=== PATIENT | female | born 1955 | race Caucasian/White ===

== ENCOUNTER 2024-01-22 11:39 | Inpatient (IN) | payer OTHER, SELFPAY ==
--- NOTE | ~2024-01-22 | XR_ITS ---
EXAMINATION: XR CHEST CLINICAL INFORMATION: Chest pain COMPARISON: None available. TECHNIQUE: 2 views of the chest were obtained. FINDINGS: No significant abnormality is noted involving the heart, lungs, mediastinum, bony thorax or soft tissues. There is some minimal wedging of a lower thoracic vertebral body. XR/XR chest 2V IMPRESSION: No acute intrathoracic disease.
--- NOTE | 2024-01-22 11:41 | ECG_ITS ---
Test Reason : CHEST PAIN Blood Pressure : / mmHG Vent. Rate : 089 BPM Atrial Rate : 089 BPM P-R Int : 150 ms QRS Dur : 122 ms QT Int : 432 ms P-R-T Axes : 033 018 023 degrees QTc Int : 525 ms Normal sinus rhythm Minimal voltage criteria for LVH, may be normal variant ( [place] product ) Left bundle branch block Abnormal ECG No previous ECGs available Referred By: Generic ED Physician Electronically Signed By:MARNIE LOPEZ MD
--- NOTE | 2024-01-22 11:52 | ED.GENADULT ---
HPI - General Adult General Chief complaint: Chest Pain Stated complaint: Chest pain, SOB Time Seen by Provider: 01/22/24 19:15 Related Data Home Medications Medication Instructions Recorded Confirmed albuterol sulfate 90 mcg/actuation 2 puff inhalation Q6H PRN 01/22/24 01/22/24 aerosol inhaler Shortness Of Breath Or Wheezing ammonium lactate 12 % lotion 1 appl topical BID 01/22/24 01/22/24 atorvastatin 10 mg tablet 10 mg DAILY 01/22/24 01/22/24 cyclosporine 0.05 % eye drops in a 1 drp ophthalmic (eye) BID 01/22/24 01/22/24 dropperette (Restasis) melatonin 10 mg tablet 10 mg PO BEDTIME 01/22/24 01/22/24 metformin 500 mg tablet 750 mg PO DAILY 01/22/24 01/22/24 multivitamin with folic acid 400 1 tab PO DAILY 01/22/24 01/22/24 mcg tablet (Daily-Romie (with folic acid)) naproxen 500 mg tablet 500 mg PO BID PRN pain 01/22/24 01/22/24 omeprazole 40 mg capsule,delayed 40 mg PO DAILY 01/22/24 01/22/24 release valsartan 40 mg tablet 40 mg PO BID 01/22/24 01/22/24 Allergies Allergy/AdvReac Type Severity Reaction Status Date / Time No Known Allergies* Allergy Uncoded 07/20/20 14:27 [facility] Social History Social History Advance Directives: No Advance Directives Information Provided: No Physical Exam ED Vital Signs: Vital Signs - 24 hr 01/22/24 11:53 Temperature 97.7 F Pulse Rate 83 Respiratory Rate 20 Blood Pressure 140/70 H Pulse Oximetry 100 Oxygen Delivery Method Room Air BMI result Body Mass Index 27.3 Course Course Course Narrative: This is a rapid medical exam: Additional HPI, ROS, PE not included below will be deferred to primary provider. Patient is a 68-year-old Italian speaking female presenting with intermittent episodes of chest pain with shortness of breath, lasting approx 3 minutes per episode, around 10x/day. Has been having these episodes for the past 2 years but states episodes are increasing in frequency. Plan: EKG, cxr, labs Additional chart created for same visit Medications Administered Discontinued Medications Generic Name Dose Route Start Last Admin Trade Name Freq PRN Reason Stop Dose Admin Aspirin 324 mg 01/22/24 19:37 01/22/24 19:49 Aspirin 81 Mg Tab.Chew PO 01/22/24 19:38 324 mg ONCE ONE Administration Medical Decision Making Lab Data 01/22/24 12:33 01/22/24 12:33 Labs: Lab Results 01/22/24 01/22/24 Range/Units 12:33 19:59 WBC 6.6 (4.8-10.8) X10*3/uL RBC 4.11 L (4.20-5.50) X10*6/uL Hgb 11.8 L (12.0-16.0) g/dl Hct 36.2 L (37.0-47.0) % MCV 88.1 (80.0-98.0) fL MCH 28.7 (27.0-33.0) pg MCHC 32.6 (31.0-35.0) g/dl RDW 13.1 (11.0-16.0) % Plt Count 409 H (160-400) X10*3/uL MPV 10.7 (9.4-12.3) fL Immature Gran % (Auto) 0.5 H (0.0-0.4) % Neut % (Auto) 40.0 L (45-73) % Lymph % (Auto) 49.5 H (20-40) % Pope % (Auto) 7.9 (2-11) % Eos % (Auto) 1.8 (0-4) % Baso % (Auto) 0.3 (0-2) % Lymph # (Auto) 3.3 (1.2-4.9) X10*3/uL Pope # (Auto) 0.5 (0.1-1.2) X10*3/uL Eos # (Auto) 0.1 (0.0-0.4) X10*3/uL Baso # (Auto) 0.0 (0.0-0.2) X10*3/uL Abs Immat Gran (auto) 0.03 (0.00-0.03) X10*3/uL Absolute Neuts (auto) 2.6 (2.0-8.3) x10*3/uL Absolute Nucleated RBC 0.000 (0.0-0.012) X10*3/uL Nucleated RBC % (auto) 0.0 (0.0-0.2) /100WBC PT 11.1 (11.1-13.3) SEC INR 0.9 (0.9-1.1) Sodium 142 (135-145) mmol/L Potassium 4.4 (3.3-5.1) mmol/L Chloride 109 H (96-108) mmol/L Carbon Dioxide 25 (22-29) mmol/L Anion Gap 12 (12-20) BUN 14 (9-16) mg/dL Creatinine 0.76 (0.5-1.4) mg/dL Estim Creat Clear Calc 58.9 Estimated GFR > 60 Random Glucose 100 (60-115) mg/dL Calcium 9.6 (8.4-10.2) mg/dL Total Bilirubin 0.3 (0.0-1.0) mg/dL AST 20 (5-31) U/L ALT 17 (0-31) U/L Alkaline Phosphatase 78 (39-117) U/L Troponin I High Sens < 2.7 2.8 (<3.5-17.0) ng/L Total Protein 7.2 (6.5-8.0) g/dL Albumin 4.0 (3.5-5.0) g/dL Discharge Plan Discharge Clinical Impression: Chest pain, Angina at rest Patient Disposition: Admitted As Inpatient
[2024-01-22 11:53] VITALS: BP 140/70; PULSE 83; RESP 20; TEMP 36.5; O2SAT 100; BMI 27.3
[2024-01-22 12:37] LABS: MANUAL DIFF FLAG NO
[2024-01-22 12:39] LABS: Basophils Percent Auto 0.3 % (0-2); Eosinophils Absolute Auto 0.1 X10*3/uL (0.0-0.4); Eosinophils Percent Auto 1.8 % (0-4); Hematocrit 36.2 % (37.0-47.0); Hemoglobin 11.8 g/dl (12.0-16.0); Imm Gran Abs Auto 0.03 X10*3/uL (0.00-0.03); Imm Gran Pct Auto 0.5 % (0.0-0.4); Lymphocytes Absolute Auto 3.3 X10*3/uL (1.2-4.9); Lymphocytes Percent Auto 49.5 % (20-40); Mean Corpuscular HGB Conc 32.6 g/dl (31.0-35.0); Mean Corpuscular Hemoglobin 28.7 pg (27.0-33.0); Mean Corpuscular Volume 88.1 fL (80.0-98.0); Mean Platelet Volume 10.7 fL (9.4-12.3); Monocytes Absolute Auto 0.5 X10*3/uL (0.1-1.2); Monocytes Percent Auto 7.9 % (2-11); Neutrophils Absolute Auto 2.6 x10*3/uL (2.0-8.3); Platelet Count 409 X10*3/uL (160-400); Red Blood Count 4.11 X10*6/uL (4.20-5.50); Red Cell Distribution Width 13.1 % (11.0-16.0); White Blood Count 6.6 X10*3/uL (4.8-10.8)
[2024-01-22 12:49] LABS: INTERNATIONAL NORM RATIO 0.9 (0.9-1.1); Prothrombin Time 11.1 SEC (11.1-13.3)
[2024-01-22 12:53] LABS: Alanine Aminotransferase 17 U/L (0-31); Alkaline Phosphatase 78 U/L (39-117); Anion Gap 12 (12-20); Aspartate Amino Transferase 20 U/L (5-31); Bilirubin Total 0.3 mg/dL (0.0-1.0); Blood Urea Nitrogen 14 mg/dL (9-16); Calcium 9.6 mg/dL (8.4-10.2); Carbon Dioxide 25 mmol/L (22-29); Chloride 109 mmol/L (96-108); Creatinine Clr Calc Pharmacy 58.9; Estimated Glomerular Filt Rate > 60; Glucose Random 100 mg/dL (60-115); Potassium 4.4 mmol/L (3.3-5.1); Sodium 142 mmol/L (135-145); Total Protein 7.2 g/dL (6.5-8.0)
[2024-01-22 13:16] LABS: Troponin-I High Sensitivity < 2.7 ng/L (<3.5-17.0)
[2024-01-22 19:30] VITALS: PULSE 87
[2024-01-22] MEDS: Aspirin 81 MG TAB.CHEW 324 MG PO (19:49)
--- NOTE | 2024-01-22 19:57 | ED.CHESTPAIN ---
HPI - Chest Pain General Chief Complaint: Chest Pain Stated Complaint: Chest pain, SOB Time Seen by Provider: 01/22/24 19:15 History of Present Illness HPI narrative: Patient is a 68-year-old female presents today with having chest pain on and off for the last 2 years but is getting much worse in the last month patient claims the pain is lasting longer up to 5 minutes each time there has no specific trigger there has no focal weakness patient has a history of prediabetes history of hypertension hypercholesterolemia she is 60 years old never had any risk stratification done. She denies any focal weakness denies any radiation of the pain to the back. Pain goes to the neck. It is associated some shortness of breath. No diaphoresis. Patient claims the pain goes away by itself. Was seen by patient's primary physician 3 days prior had an EKG done at the office a was positive for a left bundle branch block. Patient came in today because the frequency of pain has increased the duration of the pain has increased and she is getting more short of breath. Related Data Allergies Allergy/AdvReac Type Severity Reaction Status Date / Time No Known Allergies* Allergy Uncoded 07/20/20 14:27 Review of Systems Review of Systems: Positive chest pain positive shortness of breath Yes all other systems are reviewed and are negative [facility] Past Medical History Attestation statement: The following information was validated with the patient. Social History Social History Advance Directives: No Advance Directives Information Provided: No Physical Exam Vital Signs: Vital Signs: Last Vital Signs Temp 97.7 F 01/22/24 11:53 Pulse 83 01/22/24 11:53 Resp 20 01/22/24 11:53 BP 140/70 H 01/22/24 11:53 Pulse Ox 100 01/22/24 11:53 O2 Del Method Room Air 01/22/24 11:53 BMI result Body Mass Index 27.3 Appearance: Alert. Oriented X3. No acute distress. Eyes: Pupils equal, round and reactive to light. ENT: Pharynx normal. Neck: Normal inspection. Neck supple. No lymph nodes noted. No crepitus CVS: Normal heart rate and rhythm. Pulses normal. Normal S1 and S2 Respiratory: No respiratory distress. Breath sounds normal. No Wheezing. No rales Abdomen: Soft and nontender. No rigidity. No distention. good BS x4 Skin: Skin warm and dry. Normal skin color. Normal skin turgor. Extremities: No lower extremity edema. Neurovascular intact to all extremities. No Lacerations. No Rash Neuro: Oriented X 3. No motor deficit. No sensory deficit. Moving all extermities. No slurred speech Medications Administered Discontinued Medications Generic Name Dose Route Start Last Admin Trade Name Harmeet PRN Reason Stop Dose Admin Aspirin 324 mg 01/22/24 19:37 01/22/24 19:49 Aspirin 81 Mg Tab.Chew PO 01/22/24 19:38 324 mg ONCE ONE Administration Medical Decision Making Medical Decision Making [facility] Narrative: Patient is 68 years old presents today with having chest pain. The chest pain is mid chest it has been on an off. Patient's initial set of troponin was negative. She feels shortness of breath associated with this chest pain. She feels the pain goes to her neck without any specific triggers. Patient can get the pain at rest. An EKG done today by my interpretation shows a sinus rhythm with a left bundle branch block heart rate was approximately 80. Patient's EKG did not meet Sgarbossa criteria. Patient is currently pain-free. She does have a history of prediabetes, hypertension, high cholesterol. In the setting of 68-year-old with multiple risk factor no risk stratification chest pain with shortness of breath that comes and go at rest. Outpatient not a good candidate for outpatient workup as her heart score is greater than 3. Her troponin was negative. Case discussed with hospitalist team and with cardiology. Okay with admission. Currently in stable condition. Differential Diagnosis Differential Diagnoses: The differential diagnosis associated with the presentation includes Angina, ACS Admission/Observation Consideration of admission/observation: Escalation of care including admission/observation considered Consult Healthcare Provider Management of the patient was discussed with: Hospitalist and [employer] Power Plant Operator (Web Press Roll Tender) Lab Data [facility] Lab Attestation statement: I reviewed the patient's lab results. 01/22/24 12:33 01/22/24 12:33 Labs: Lab Results 01/22/24 Range/Units 12:33 WBC 6.6 (4.8-10.8) X10*3/uL RBC 4.11 L (4.20-5.50) X10*6/uL Hgb 11.8 L (12.0-16.0) g/dl Hct 36.2 L (37.0-47.0) % MCV 88.1 (80.0-98.0) fL MCH 28.7 (27.0-33.0) pg MCHC 32.6 (31.0-35.0) g/dl RDW 13.1 (11.0-16.0) % Plt Count 409 H (160-400) X10*3/uL MPV 10.7 (9.4-12.3) fL Immature Gran % (Auto) 0.5 H (0.0-0.4) % Neut % (Auto) 40.0 L (45-73) % Lymph % (Auto) 49.5 H (20-40) % [place] % (Auto) 7.9 (2-11) % Eos % (Auto) 1.8 (0-4) % Baso % (Auto) 0.3 (0-2) % Lymph # (Auto) 3.3 (1.2-4.9) X10*3/uL [place] # (Auto) 0.5 (0.1-1.2) X10*3/uL Eos # (Auto) 0.1 (0.0-0.4) X10*3/uL Baso # (Auto) 0.0 (0.0-0.2) X10*3/uL Abs Immat Gran (auto) 0.03 (0.00-0.03) X10*3/uL Absolute Neuts (auto) 2.6 (2.0-8.3) x10*3/uL Absolute Nucleated RBC 0.000 (0.0-0.012) X10*3/uL Nucleated RBC % (auto) 0.0 (0.0-0.2) /100WBC PT 11.1 (11.1-13.3) SEC INR 0.9 (0.9-1.1) Sodium 142 (135-145) mmol/L Potassium 4.4 (3.3-5.1) mmol/L Chloride 109 H (96-108) mmol/L Carbon Dioxide 25 (22-29) mmol/L Anion Gap 12 (12-20) BUN 14 (9-16) mg/dL Creatinine 0.76 (0.5-1.4) mg/dL Estim Creat Clear Calc 58.9 Estimated GFR > 60 Random Glucose 100 (60-115) mg/dL Calcium 9.6 (8.4-10.2) mg/dL Total Bilirubin 0.3 (0.0-1.0) mg/dL AST 20 (5-31) U/L ALT 17 (0-31) U/L Alkaline Phosphatase 78 (39-117) U/L Troponin I High Sens < 2.7 (<3.5-17.0) ng/L Total Protein 7.2 (6.5-8.0) g/dL Albumin 4.0 (3.5-5.0) g/dL Independent Interpretation I performed an independent interpretation of an: EKG (Left bundle branch block heart rate is 80 negative Sgarbossa criteria) and Plain X-Ray (Chest x-ray negative for pneumonia) Radiology Impression Discussion of test interpretation with radiology: I have reviewed the radiologist's reading. Chronic Conditions Hypercholesterolemia, hypertension, prediabetic Discharge Plan Discharge Clinical Impression: Chest pain, Angina at rest Patient Disposition: Admitted As Inpatient
--- NOTE | 2024-01-22 20:24 | PHA.MEDREC ---
Pharmacy Consult ? Medication Reconciliation Pharmacy has completed the medication reconciliation. Patient reported there was a recent increase of metfromin from 500 to 750 mg. Bianka Lara, OlegD
[2024-01-22 20:25] LABS: Troponin-I High Sensitivity 2.8 ng/L (<3.5-17.0)
--- NOTE | 2024-01-22 20:53 | P.HPHOSP_ITS ---
History of Present Illness Date of Service: 01/22/24 Attending physician on admission: Lexie Kang Chief Complaint: chest pain Stephanie Palafox is a 68 years old woman with past medical history significant for impaired glucose tolerance on metformin, GERD/PUD, hyperlipidemia and essential hypertension presents to the emergency department complaining mid chest pain. Patient stated that she has been having chest pain episodes over the last 2 years. Initially the chest pain happened with exertion mode over the last several months i occurs with minimal exertion oxygen with shortness on breath and palpitations. She stated last night was very severe, intensity 10/10. It radiated to her neck. These events last several minutes. Denied nausea, vomiting, sweating or dizziness. She denies history of CHF or CAD. Patient commented that her 40 years old daughter we will undergo cardiac catheterization soon. She denied tobacco smoking, alcohol abuse or illicit drug use. On January 17 of this year she underwent ECG that showed LBBB. Previous ECGs showed no left bundle block. She takes Tylenol as needed for knee pain. In the ED, she was found to have stable vital signs. Blood workup showed no leukocytosis or thrombocytopenia. Troponin is negative x2. There are no significant electrolyte imbalances. Renal and liver function are normal. ECG showed LBBB. ED tx: Aspirin 324 mg p.o., Lovenox 60 mg subQ Review of Systems 2 Review of Systems: All 12 systems were reviewed and normal except as noted in HPI. [facility] Medical History (Updated 01/22/24 @ 21:16 by Lexie Kang MD) GERD (gastroesophageal reflux disease) Impaired glucose tolerance Hyperlipidemia Essential hypertension Surgical History (Updated 01/22/24 @ 21:16 by Lexie Kang MD) H/O inguinal hernia repair H/O bladder repair surgery History of hand surgery H/O: hysterectomy Social History Advance Directives: No Advance Directives Information Provided: No Meds Allergies Allergy/AdvReac Type Severity Reaction Status Date / Time No Known Allergies* Allergy Uncoded 07/20/20 14:27 Active Medications: Current Medications Acetaminophen (Acetaminophen 325 Mg Tablet) 650 mg PO Q6H PRN PRN Reason: Pain, Mild (Pain Scale 1-3) Aspirin (Aspirin Enteric Coated 81 Mg Tablet.Dr) 81 mg PO DAILY CHANO Enoxaparin Sodium (Enoxaparin Sodium 60 Mg/0.6 Ml Syringe) 60 mg 1 mg/kg (60 mg) SUBCUT BID [facility] Sodium Chloride (0.9 % Sodium Chloride Flush 3 Ml Syringe) 3 ml IVFLUSH QSHIFT [facility] Home Medications Medication Instructions Recorded Confirmed Last Taken Type albuterol sulfate 90 mcg/actuation 2 puff inhalation Q6H PRN 01/22/24 01/22/24 Unknown History aerosol inhaler Shortness Of Breath Or Wheezing ammonium lactate 12 % lotion 1 appl topical BID 01/22/24 01/22/24 01/22/24 History atorvastatin 10 mg tablet 10 mg DAILY 01/22/24 01/22/24 01/22/24 History cyclosporine 0.05 % eye drops in a 1 drp ophthalmic (eye) BID 01/22/24 01/22/24 01/22/24 History dropperette (Restasis) melatonin 10 mg tablet 10 mg PO BEDTIME 01/22/24 01/22/24 01/21/24 History metformin 500 mg tablet 750 mg PO DAILY 01/22/24 01/22/24 01/22/24 History multivitamin with folic acid 400 1 tab PO DAILY 01/22/24 01/22/24 01/22/24 History mcg tablet (Daily-Romie (with folic acid)) naproxen 500 mg tablet 500 mg PO BID PRN pain 01/22/24 01/22/24 Unknown History omeprazole 40 mg capsule,delayed 40 mg PO DAILY 01/22/24 01/22/24 01/22/24 History release valsartan 40 mg tablet 40 mg PO BID 01/22/24 01/22/24 01/22/24 History Physical Exam 2 Vital Signs and Narrative: Vital Signs: Last Vital Signs Temp 97.7 F 01/22/24 11:53 Pulse 83 01/22/24 11:53 Resp 20 01/22/24 11:53 BP 140/70 H 01/22/24 11:53 Pulse Ox 100 01/22/24 11:53 O2 Del Method Room Air 01/22/24 11:53 BMI result Body Mass Index 27.3 Constitutional - Awake and Alert, No apparent distress. Eyes - PERRLA, EOMI Cardiovascular - S1S2, RRR, No edema Respiratory - Normal lung expansion, Normal respiratory effort, No respiratory distress, CTA bilaterally Gastrointestinal - NT / ND; +BS; No rebound or guarding - No CVA tenderness Extremities - no calf tenderness bilaterally, no swelling Musculoskeletal - Normal inspection, normal ROM Skin - Warm/Dry Neurological - Alert & oriented x3, CN II-XII in tact, 5/5 strength BUE and BLE Psychological - Appropriate affect Results Labs 01/22/24 12:33 01/22/24 12:33 Labs: Laboratory Results - last 24 hr 01/22/24 01/22/24 12:33 19:59 MCV 88.1 MCH 28.7 MCHC 32.6 RDW 13.1 Plt Count 409 H MPV 10.7 Immature Gran % (Auto) 0.5 H Neut % (Auto) 40.0 L Lymph % (Auto) 49.5 H [place] % (Auto) 7.9 Eos % (Auto) 1.8 Baso % (Auto) 0.3 Lymph # (Auto) 3.3 [place] # (Auto) 0.5 Eos # (Auto) 0.1 Baso # (Auto) 0.0 Abs Immat Gran (auto) 0.03 Absolute Neuts (auto) 2.6 Absolute Nucleated RBC 0.000 Nucleated RBC % (auto) 0.0 PT 11.1 INR 0.9 Anion Gap 12 Estim Creat Clear Calc 58.9 Estimated GFR > 60 Random Glucose 100 Calcium 9.6 Total Bilirubin 0.3 AST 20 ALT 17 Alkaline Phosphatase 78 Troponin I High Sens < 2.7 2.8 Total Protein 7.2 Albumin 4.0 Imaging Radiologist's Impressions: Impressions Chest X-Ray 01/22/24 12:06 IMPRESSION: No acute intrathoracic disease. Assessment and Plan (1) Unstable angina: Status: Acute (2) Essential hypertension: Status: Acute (3) Hyperlipidemia: Qualifiers: Hyperlipidemia type: unspecified Qualified Code(s): E78.5 - Hyperlipidemia, unspecified Status: Acute (4) Impaired glucose tolerance: Status: Acute (5) GERD (gastroesophageal reflux disease): Qualifiers: Esophagitis presence: esophagitis presence not specified Qualified Code(s): K21.9 - Gastro-esophageal reflux disease without esophagitis Status: Acute Plan Stephanie Palafox is a 68 years old woman admitted with: * Unstable angina/ACS. Admit to hospitalist service. Telemetry. Continue treatment with Lovenox 60 mg subQ every 12 hours. Continue treatment with aspirin 81 mg p.o. daily. Add beta blockers continue statin. Nitroglycerin SL q5 min x3 prn chest pain. TTE. Cardiology consult -notified by ED. * Hyperlipidemia. Continue statin. * Essential hypertension. Continue losartan. * Impaired glucose tolerance. Hold metformin. Blood glucose monitoring before meals and bedtime. Insulin sliding scale. Check Hgb A1c. * GERD/PUD. Continue PPI. DVT prophylaxis: Lovenox GI prophylaxis: PPI Code status: Full Patient will need hospitalization for at least 2 midnights for unstable angina treatment with Lovenox, close vital signs monitoring and evaluation by subspecialty. Quality Stroke Does the patient have a stroke diagnosis?: No VTE Prior VTE?: No VTE Risk Level:: Medical - moderate - high VTE Device Contraindication: Treatment Not Indicated VTE Drug Contraindication: N/A - Med Ordered
[2024-01-22 21:23] LABS: Hematocrit 35.8 % (37.0-47.0); Hemoglobin 11.9 g/dl (12.0-16.0); Mean Corpuscular HGB Conc 33.2 g/dl (31.0-35.0); Mean Corpuscular Hemoglobin 28.7 pg (27.0-33.0); Mean Corpuscular Volume 86.5 fL (80.0-98.0); Mean Platelet Volume 10.7 fL (9.4-12.3); Platelet Count 414 X10*3/uL (160-400); Red Blood Count 4.14 X10*6/uL (4.20-5.50); Red Cell Distribution Width 13.2 % (11.0-16.0); White Blood Count 7.6 X10*3/uL (4.8-10.8)
[2024-01-22 21:25] LABS: INTERNATIONAL NORM RATIO 0.9 (0.9-1.1); Prothrombin Time 10.6 SEC (11.1-13.3)
[2024-01-22 21:28] LABS: Partial Thromboplastin Time 28.8 SEC (26.0-36.8)
[2024-01-22 21:34] VITALS: BP 155/96; PULSE 88; RESP 20; TEMP 36.6; O2SAT 98
[2024-01-22 21:49] VITALS: BP 155/96; PULSE 90
[2024-01-22] MEDS: Nitroglycerin 2 % Oint 1 GM Packet 0.5 INCH TRANSDERMA (21:49)
[2024-01-22 22:00] VITALS: BP 142/74; PULSE 79; RESP 18; TEMP 36.6; O2SAT 98
[2024-01-22 22:01] LABS: Glucose, Whole Blood 135 mg/dL (60-115)
[2024-01-22] MEDS: Metoprolol Tartrate 12.5 MG HALFTAB PO (22:28)
[2024-01-22] MEDS: 0.9 % Sodium Chloride Flush 3 ML SYRINGE IVFLUSH (22:45)
[2024-01-22] MEDS: Enoxaparin Sodium 60 MG/0.6 ML SYRINGE SUBCUT (22:46)
[2024-01-22] MEDS: Melatonin 3 MG TABLET 9 MG PO (22:47)
[2024-01-22] MEDS: Valsartan 40 MG TABLET PO (22:50)
[2024-01-23 05:19] VITALS: BP 134/74; PULSE 67; RESP 18; TEMP 36.6; O2SAT 100
[2024-01-23 05:20] LABS: Basophils Percent Auto 0.1 % (0-2); Eosinophils Absolute Auto 0.2 X10*3/uL (0.0-0.4); Hematocrit 32.8 % (37.0-47.0); Hemoglobin 10.9 g/dl (12.0-16.0); Imm Gran Abs Auto 0.03 X10*3/uL (0.00-0.03); Imm Gran Pct Auto 0.4 % (0.0-0.4); Lymphocytes Absolute Auto 4.3 X10*3/uL (1.2-4.9); Lymphocytes Percent Auto 58.8 % (20-40); MANUAL DIFF FLAG NO; Mean Corpuscular HGB Conc 33.2 g/dl (31.0-35.0); Mean Corpuscular Hemoglobin 28.7 pg (27.0-33.0); Mean Corpuscular Volume 86.3 fL (80.0-98.0); Mean Platelet Volume 10.6 fL (9.4-12.3); Monocytes Absolute Auto 0.5 X10*3/uL (0.1-1.2); Monocytes Percent Auto 6.1 % (2-11); Neutrophils Absolute Auto 2.4 x10*3/uL (2.0-8.3); Neutrophils Percent Auto 32.6 % (45-73); Platelet Count 369 X10*3/uL (160-400); Red Cell Distribution Width 13.2 % (11.0-16.0); White Blood Count 7.4 X10*3/uL (4.8-10.8)
[2024-01-23 05:37] LABS: Anion Gap 13 (12-20); Blood Urea Nitrogen 15 mg/dL (9-16); Carbon Dioxide 25 mmol/L (22-29); Chloride 108 mmol/L (96-108); Cholesterol 230 mg/dL (<200); Creatinine Clr Calc Pharmacy 63.9; Estimated Glomerular Filt Rate > 60; Glucose Random 106 mg/dL (60-115); HDL Cholesterol 44 mg/dL (>40); LDL Cholesterol Calculated 142 mg/dL (<100); Potassium 4.1 mmol/L (3.3-5.1); Sodium 142 mmol/L (135-145); Triglycerides 221 mg/dL (<150)
[2024-01-23 05:44] LABS: Troponin-I High Sensitivity 3.4 ng/L (<3.5-17.0)
[2024-01-23] MEDS: Omeprazole 40 MG CAPSULE.DR PO (06:19)
--- NOTE | 2024-01-23 07:00 | CA_ITS ---
Transthoracic Echocardiogram Patient (Last, First, Middle): Stephanie Palafox, Gender: Female Date of : 1955 Age: 68 Procedure Date: 01/23/2024 Procedure Type: Transthoracic Echocardiogram [place] [facility] [place]: 152.4 cm Weight: 63.5 kg BSA: 1.60 m2 Heart Rate: 73 bpm BP: 134 / 74 mmHg Informatica: SB Referring MD: Lexie Kang MD Social Worker Health Services: Jeffery Foster MD Symptoms: Unstable angina, LBBB Study Quality: Fair but adequate apical window ECG Rhythm: Sinus Conclusions: - 1. Moderately reduced LV ejection fraction 35-40% with possible basal inferior wall motion abnormality with impaired relaxation filling pattern 2. Cardiac valvular Doppler is within normal limits 3. Normal RV systolic pressure 4. No gross pericardial effusion Findings Left Ventricle Normal left ventricular cavity size. There is normal left ventricular wall thickness. The left ventricular systolic function is moderately decreased. The visually estimated ejection fraction is between 35-40%. There is moderate global hypokinesis. There is paradoxical septal motion consistent with a left bundle branch block. Spectral Doppler is indicative of an impaired relaxation filling pattern. E/E prime ratio is between 8 and 15 consistent with indeterminate filling pressures. There is mild septal asymmetric hypertrophy. Wall Motion Rest Echo Findings The basal inferior segment is hypokinetic. All other scored wall segments showed normal motion. Right Ventricle Normal right ventricular cavity size and systolic function. Atria Both atria are normal in size. There is no evidence of interatrial shunt. Aortic Valve Normal aortic valve structure and function. There is no aortic valve stenosis. There is no aortic valve regurgitation. Mitral Valve Normal mitral valve structure and function. There is trace mitral valve regurgitation. There is no mitral valve stenosis. Pulmonic Valve The pulmonic valve is likely normal. Tricuspid Valve Normal tricuspid valve structure. There is trace tricuspid valve regurgitation. The right ventricular systolic pressure is normal. The right ventricular systolic pressure is 29 mmHg. Normal right atrial pressure. There is no evidence of pulmonary hypertension. Great Vessels All visible segments of the aorta are normal in size. The pulmonary artery was not well visualized. There is no dilatation of the ascending aorta measuring 3.00 cm. Venous The inferior vena cava is normal in size and collapses greater than 50% with inspiration. Pericardium/Pleural There is no evidence of pericardial effusion. Prior Study Comparison No prior study available for comparison. Measurements 2D Linear Measurements IVSd: 1.33 0.6-0.9/0.6-1.0 cm LVIDd: 3.56 3.9-5.3/4.2-5.9 cm LVIDd Index: 2.23 2.4-3.2/2.2-3.1 cm/m2 LVIDs: 2.68 2.0-3.6 cm LVPWd: 0.81 0.7-1.1 cm LA Diam: 3.30 2.7-3.8/3.0-4.0 cm LAIDs Index: 2.06 1.5-2.3 cm/m2 LV Mass: 145.17 67-162/88-224 g LV Mass Index: 90.73 43-95/49-115 g/m2 LVOT Diam: 2.00 3.0+(-)1.3 cm 2D Systolic Function EF 4C: 35.30 >55% EF 2C: 47.60 >55% EF BiP: 40.80 >55% Mitral Valve MV Pk E: 0.52 MV PK A: 0.96 MV Decel Time: 111.00 E/A: 0.50 E'Lateral: 6.74 E'Medial: 2.72 E/E' Med: 19.20 E/E' Lat: 7.80 PHT: 33.00 MVA PHT: 6.67 Decel [place]: 4.71 Aortic Valve AoV Pk Kirit: 1.26 AoV Pk Grad: 6.00 OCTAVIO: 2.05 LVOT LVOT Pk Kirit: 0.82 LVOT Mn Kirit: 0.51 LVOT VTI: 0.15 LVOT Pk Grad: 3.00 LVOT Mn Grad: 1.00 LVOT Diam: 2.00 LVOT Area: 3.14 Diastolic Function MV Pk E: 0.52 MV Pk A: 0.96 E/A: 0.50 E'Medial: 2.72 E/E' Med: 19.20 E' Laterial: 6.74 E/E' Lat: 7.80 Right Ventricle TAPSE (mm): 7.00 TVS' Kirit: 5.66 Tricuspid Valve TR Pk Kirit: 2.54 TR Pk Grad: 26.00 RA Press: 3.00 RVSP: 29.00 Great Vessels Aorta Sinus of Valsalva: 2.80 2.0-3.5 cm Ao Asc: 3.00 2.1-3.4 cm Pulmonary Valve PV Pk Kirit: 1.00 Peak PV Grad: 4.00 Updated in Other Vendor System with Status of Final Jeffery Foster MD electronically signed on 01/23/2024 11:47:01 AM with status of Final
[2024-01-23 07:22] LABS: Estimated Average Glucose 120 mg/dL; Hemoglobin A1c % 5.8 % (<6.0)
[2024-01-23 08:21] VITALS: BP 146/81; PULSE 77; RESP 20; TEMP 36.3; O2SAT 99
--- NOTE | 2024-01-23 10:12 | P.CONCA_ITS ---
History of Present Illness History of Present Illness Date of Service: 01/23/24 Requesting physician: Barb Goodman Consult reason: chest pain Chief complaint: unstable angina Narrative: I was consulted to see Mrs. Palafox in cardiology consultation today for chest discomfort and new EKG abnormality and palpitations. History was obtained with help of veterinary assistant at bedside. Patient's daughter was present room. Patient for many years has been having symptoms of retrosternal chest pressure associated with rapid heartbeat which she feels in her neck and associated shortness of breath/choking sensation. Patient says the symptoms have been present for many years and has been evaluated as outpatient from gastroenterological perspective. The symptoms happen randomly. Did not happen only with exertion or under stressful situation or after eating. Symptoms happen randomly and can happen even at nighttime. She had seen a primary care physician recently and was noted to have abnormal EKG ever advised to come to emergency room as it will get time to see a visual stylist. Patient came to the emergency room yesterday. Her EKG does show left bundle-branch block. This apparently is new. Her serial troponins are normal and flat. She was admitted overnight. She has not had any arrhythmias overnight. No symptoms overnight. She has prior history of hypertension, hyperlipidemia, acid reflux disease. She is advised to be admitted by the emergency room physician due to her progressive symptoms and new left bundle-branch block. Review of Systems 2 Constitutional: Constitutional: Reports no additional constitutional complaints Eyes: Eyes: Reports no additional eye complaints ENT: Reports system reviewed and no additional complaints, except as documented Cardiovascular: Cardiovascular: Reports chest pain at rest, Denies leg edema, Denies lightheadedness, Denies Loss of Consciousness, Reports palpitations and Reports dyspnea Respiratory: Respiratory: Reports no additional respiratory complaints and Reports dyspnea Gastrointestinal: Gastrointestinal: Reports no additional gastrointestinal complaints Genitourinary: Genitourinary: Reports no additional female genitourinary complaints Musculoskeletal: Musculoskeletal: Reports no additional musculoskeletal complaints Integumentary/Breasts: Skin/Breast: Reports system reviewed and no additional complaints, except as docu Neurologic: Reports system reviewed and no additional complaints, except as documented Psychiatric: Psychiatric: Reports no additional psychiatric complaints Endocrine: Endocrine: Reports palpitations PMFSH Past Medical History Medical History GERD (gastroesophageal reflux disease) Impaired glucose tolerance Hyperlipidemia Essential hypertension Surgical History Surgical History H/O inguinal hernia repair H/O bladder repair surgery History of hand surgery H/O: hysterectomy Social History Social History Household Members: Children Housing: House Do you presently have visiting nurse or other home services: No Patient Tobacco Use Status: Never used Tobacco Meds Allergies Allergy/AdvReac Type Severity Reaction Status Date / Time No Known Allergies* Allergy Uncoded 07/20/20 14:27 Active Medications: Current Medications Acetaminophen (Acetaminophen 325 Mg Tablet) 650 mg PO Q6H PRN PRN Reason: Pain, Mild (Pain Scale 1-3) Aspirin (Aspirin Enteric Coated 81 Mg Tablet.Dr) 81 mg PO DAILY [facility] Atorvastatin Calcium (Atorvastatin Calcium 10 Mg Tablet) 10 mg PO DAILY [facility] Dextrose (Dextrose 50 % 25 Gm/50 Ml Syringe) 25 gm IVPUSH Q15M PRN; Protocol PRN Reason: per Hypoglycemia Standing Ord. Enoxaparin Sodium (Enoxaparin Sodium 60 Mg/0.6 Ml Syringe) 60 mg 1 mg/kg (60 mg) SUBCUT BID [facility] Glucose (Glucose Gel 15 Gm Gel..Gram.) 15 gm PO Q15M PRN; Protocol PRN Reason: per Hypoglycemia Standing Ord. Insulin Human Lispro (Insulin Lispro 100 Unit/Ml 3 Ml Vial) 0 unit SUBCUT QIDACHS [facility]; Protocol Last Admin: 01/23/24 07:03 Dose: Not Given Melatonin (Melatonin 3 Mg Tablet) 9 mg PO BEDTIME [facility] Last Admin: 01/22/24 22:47 Dose: 9 mg Metoprolol Tartrate (Metoprolol Tartrate 12.5 Mg Halftab) 12.5 mg PO BID [facility]; Protocol Last Admin: 01/22/24 22:28 Dose: 12.5 mg Nitroglycerin (Nitroglycerin 0.4 Mg Tab.Subl) 0.4 mg SUBLINGUAL Q5MX3 PRN PRN Reason: Chest Pain Nitroglycerin (Nitroglycerin 2 % Oint 1 Gm Packet) 0.5 inch TRANSDERMA RQ6H WHILE AWAKE [facility] Last Admin: 01/22/24 21:49 Dose: 0.5 inch Non-Formulary Medication (Cyclosporine [Restasis]) 1 drop EYE-BOTH BID [facility] Omeprazole (Omeprazole 40 Mg Capsule.Dr) 40 mg PO DAILY@0630 [facility] Last Admin: 01/23/24 06:19 Dose: 40 mg Sodium Chloride (0.9 % Sodium Chloride Flush 3 Ml Syringe) 3 ml IVFLUSH QSHIFT [facility] Last Admin: 01/23/24 07:06 Dose: Not Given Valsartan (Valsartan 40 Mg Tablet) 40 mg PO BID [facility]; Protocol Last Admin: 01/22/24 22:50 Dose: 40 mg Home Medications Medication Instructions Recorded Confirmed Last Taken Type albuterol sulfate 90 mcg/actuation 2 puff inhalation Q6H PRN 01/22/24 01/22/24 Unknown History aerosol inhaler Shortness Of Breath Or Wheezing ammonium lactate 12 % lotion 1 appl topical BID 01/22/24 01/22/24 01/22/24 History atorvastatin 10 mg tablet 10 mg DAILY 01/22/24 01/22/24 01/22/24 History cyclosporine 0.05 % eye drops in a 1 drp ophthalmic (eye) BID 01/22/24 01/22/24 01/22/24 History dropperette (Restasis) melatonin 10 mg tablet 10 mg PO BEDTIME 01/22/24 01/22/24 01/21/24 History metformin 500 mg tablet 750 mg PO DAILY 01/22/24 01/22/24 01/22/24 History multivitamin with folic acid 400 1 tab PO DAILY 01/22/24 01/22/24 01/22/24 History mcg tablet (Daily-Romie (with folic acid)) naproxen 500 mg tablet 500 mg PO BID PRN pain 01/22/24 01/22/24 Unknown History omeprazole 40 mg capsule,delayed 40 mg PO DAILY 01/22/24 01/22/24 01/22/24 History release valsartan 40 mg tablet 40 mg PO BID 01/22/24 01/22/24 01/22/24 History Physical Exam 2 Vital Signs: Vital Signs: Last Vital Signs Temp 97.3 F 01/23/24 08:21 Pulse 77 01/23/24 08:21 Resp 20 01/23/24 08:21 BP 146/81 H 01/23/24 08:21 Pulse Ox 99 01/23/24 08:21 O2 Del Method Room Air 01/23/24 08:21 BMI result Body Mass Index 27.3 Const: General: cooperative, comfortable, no acute distress, alert, awake and Physically active Nutritional Appearance: average body habitus O rientation/consciousness: patient oriented x3 Limitations: no limitations HEENT: Head: Yes normocephalic and Yes atraumatic Neck: Neck: Yes trachea midline, Yes supple and Yes no JVD Resp: Effort & Inspection: normal respiratory effort Auscultation: clear to auscultation bilaterally Cardio: Jugular venous distension: no JVD Palpation: normal PMI Rate: r egular rate Rhythm: regular rhythm Heart sounds: S1 normal heart sound present, S2 normal heart sound present, no click, no gallops, no murmurs and no rubs GI: Auscultation: normal bowel sounds Skin: General skin exam: no rashes or lesions noted Neuro: General: patient oriented x3 and no focal motor deficits Extrem: General: Yes no clubbing, cyanosis or edema Psych: Appearance: grossly normal Objective Labs and Meds 01/23/24 05:12 01/23/24 05:12 Lab results: Laboratory Results - last 24 hr 01/22/24 01/22/24 01/22/24 12:33 19:59 21:08 WBC 6.6 7.6 RBC 4.11 L 4.14 L Hgb 11.8 L 11.9 L Hct 36.2 L 35.8 L MCV 88.1 86.5 MCH 28.7 28.7 MCHC 32.6 33.2 RDW 13.1 13.2 Plt Count 409 H 414 H MPV 10.7 10.7 Immature Gran % (Auto) 0.5 H Neut % (Auto) 40.0 L Lymph % (Auto) 49.5 H Barber % (Auto) 7.9 Eos % (Auto) 1.8 Baso % (Auto) 0.3 Lymph # (Auto) 3.3 Barber # (Auto) 0.5 Eos # (Auto) 0.1 Baso # (Auto) 0.0 Abs Immat Gran (auto) 0.03 Absolute Neuts (auto) 2.6 Absolute Nucleated RBC 0.000 0.000 Nucleated RBC % (auto) 0.0 0.0 PT 11.1 10.6 L INR 0.9 0.9 APTT 28.8 Sodium 142 Potassium 4.4 Chloride 109 H Carbon Dioxide 25 Anion Gap 12 BUN 14 Creatinine 0.76 Estim Creat Clear Calc 58.9 Estimated GFR > 60 POC Glucose Random Glucose 100 Estimat Average Glucose Hemoglobin A1c % Calcium 9.6 Total Bilirubin 0.3 AST 20 ALT 17 Alkaline Phosphatase 78 Troponin I High Sens < 2.7 2.8 Total Protein 7.2 Albumin 4.0 Triglycerides Cholesterol LDL Cholesterol, Calc HDL Cholesterol 01/22/24 01/23/24 21:57 05:12 WBC 7.4 RBC 3.80 L Hgb 10.9 L Hct 32.8 L MCV 86.3 MCH 28.7 MCHC 33.2 RDW 13.2 Plt Count 369 MPV 10.6 Immature Gran % (Auto) 0.4 Neut % (Auto) 32.6 L Lymph % (Auto) 58.8 H Barber % (Auto) 6.1 Eos % (Auto) 2.0 Baso % (Auto) 0.1 Lymph # (Auto) 4.3 Barber # (Auto) 0.5 Eos # (Auto) 0.2 Baso # (Auto) 0.0 Abs Immat Gran (auto) 0.03 Absolute Neuts (auto) 2.4 Absolute Nucleated RBC 0.000 Nucleated RBC % (auto) 0.0 PT INR APTT Sodium 142 Potassium 4.1 Chloride 108 Carbon Dioxide 25 Anion Gap 13 BUN 15 Creatinine 0.70 Estim Creat Clear Calc 63.9 Estimated GFR > 60 POC Glucose 135 H Random Glucose 106 Estimat Average Glucose 120 Hemoglobin A1c % 5.8 Calcium 9.0 D Total Bilirubin AST ALT Alkaline Phosphatase Troponin I High Sens 3.4 Total Protein Albumin Triglycerides 221 H Cholesterol 230 H LDL Cholesterol, Calc 142 H HDL Cholesterol 44 Imaging Radiologist's impression: Impressions Chest X-Ray 01/22/24 12:06 IMPRESSION: No acute intrathoracic disease. Assessment and Plan (1) Chest pain: Status: Acute Patient with many years of having chest pain with increasing frequency recently with no obvious source found. She is notice now to have left bundle-branch block and was advised admission. She has no evidence of acute coronary syndrome by serial troponins. Echocardiogram has been performed will be reviewed. She obviously needs further cardiac workup but can be done as an outpatient. Will decide whether we can pursue cardiac catheterization and/or vasodilating myocardial perfusion imaging as an outpatient. She also has symptoms of palpitations which might be causing her symptoms of chest pain and may have an arrhythmia for heart such as SVT and/or atrial fibrillation. Will schedule for outpatient 7 day monitor to assess for the same. Testing can be done as an outpatient for further management. Blood pressure is well optimized. Continue current treatment. Continue statin therapy. Can use low-dose aspirin therapy till further workup has been completed. Basis of echocardiogram will decide whether patient most likely will be discharged later today. Procedures Date of Service Date of Service: 01/23/24
--- NOTE | 2024-01-23 10:26 | MHC.CM.PN ---
CM met with Patient and multiple family members at bedside. Patient lives with her Daughter/HCP/Sarah @ [address] in [place] and she required no services [employer](a cane has been ordered for her). There is a possibility that Patient will transfer to [facility] VS home/self care. CM has initiated and will follow for dc planning. PCP is Dr. Doug Gomez.
[2024-01-23 11:21] VITALS: BP 145/78; PULSE 82; RESP 20; TEMP 36.7; O2SAT 100
[2024-01-23] MEDS: Aspirin Enteric Coated 81 MG TABLET.DR PO (11:24)
[2024-01-23] MEDS: Metoprolol Tartrate 12.5 MG HALFTAB PO ×2 (11:24→20:36)
[2024-01-23] MEDS: Atorvastatin Calcium 10 MG TABLET PO (11:24)
[2024-01-23] MEDS: Enoxaparin Sodium 60 MG/0.6 ML SYRINGE SUBCUT (11:25)
[2024-01-23 11:32] LABS: Glucose, Whole Blood 169 mg/dL (60-115)
--- NOTE | 2024-01-23 11:41 | HO.PM.IMPN ---
Subjective Subjective Date of Service: 01/23/24 Review of Systems Follow up chest pain no nausea or vomiting Physical Exam Vital Signs: Vital Signs: Last Vital Signs Temp 98.0 F 01/23/24 11:21 Pulse 82 01/23/24 11:21 Resp 20 01/23/24 11:21 BP 145/78 H 01/23/24 11:21 Pulse Ox 100 01/23/24 11:21 O2 Del Method Room Air 01/23/24 11:21 BMI result Body Mass Index 27.3 Appearing in no acute distress lung sounds are clear to auscultation heart regular rate rhythm, clear S1, S2 positive bowel sounds, abdomen is soft, nontender neuro patient is alert x3, no focal deficits Objective Data Active Medications Acetaminophen (Acetaminophen 325 Mg Tablet) 650 mg PO Q6H PRN PRN Reason: Pain, Mild (Pain Scale 1-3) Aspirin (Aspirin Enteric Coated 81 Mg Tablet.Dr) 81 mg PO DAILY [facility] Last Admin: 01/23/24 11:24 Dose: 81 mg Documented By: GILLES Atorvastatin Calcium (Atorvastatin Calcium 10 Mg Tablet) 10 mg PO DAILY [facility] Last Admin: 01/23/24 11:24 Dose: 10 mg Documented By: GILLES Dextrose (Dextrose 50 % 25 Gm/50 Ml Syringe) 25 gm IVPUSH Q15M PRN; Protocol PRN Reason: per Hypoglycemia Standing Ord. Enoxaparin Sodium (Enoxaparin Sodium 60 Mg/0.6 Ml Syringe) 60 mg 1 mg/kg (60 mg) SUBCUT BID [facility] Last Admin: 01/23/24 11:25 Dose: 60 mg Documented By: GILLES Glucose (Glucose Gel 15 Gm Gel..Gram.) 15 gm PO Q15M PRN; Protocol PRN Reason: per Hypoglycemia Standing Ord. Insulin Human Lispro (Insulin Lispro 100 Unit/Ml 3 Ml Vial) 0 unit SUBCUT QIDACHS [facility]; Protocol Last Admin: 01/23/24 07:03 Dose: Not Given Documented By: JAYLON Non-Admin Reason: No Insulin Coverage Melatonin (Melatonin 3 Mg Tablet) 9 mg PO BEDTIME [facility] Last Admin: 01/22/24 22:47 Dose: 9 mg Documented By: TIANNA Metoprolol Tartrate (Metoprolol Tartrate 12.5 Mg Halftab) 12.5 mg PO BID [facility]; Protocol Last Admin: 01/23/24 11:24 Dose: 12.5 mg Documented By: GILLES Nitroglycerin (Nitroglycerin 0.4 Mg Tab.Subl) 0.4 mg SUBLINGUAL Q5MX3 PRN PRN Reason: Chest Pain Nitroglycerin (Nitroglycerin 2 % Oint 1 Gm Packet) 0.5 inch TRANSDERMA RQ6H WHILE AWAKE [facility] Last Admin: 01/23/24 11:18 Dose: Not Given Documented By: GILLES Non-Admin Reason: Not In Room Non-Formulary Medication (Cyclosporine [Restasis]) 1 drop EYE-BOTH BID [facility] Omeprazole (Omeprazole 40 Mg Capsule.Dr) 40 mg PO DAILY@0630 [facility] Last Admin: 01/23/24 06:19 Dose: 40 mg Documented By: TIANNA Sodium Chloride (0.9 % Sodium Chloride Flush 3 Ml Syringe) 3 ml IVFLUSH QSHIFT [facility] Last Admin: 01/23/24 07:06 Dose: Not Given Documented By: MEYC Non-Admin Reason: See Note Valsartan (Valsartan 40 Mg Tablet) 40 mg PO BID [facility]; Protocol Last Admin: 01/22/24 22:50 Dose: 40 mg Documented By: TIANNA Labs 01/23/24 05:12 01/23/24 05:12 Labs: Laboratory Results - last 24 hr 01/22/24 01/22/24 01/22/24 12:33 19:59 21:08 MCV 88.1 86.5 MCH 28.7 28.7 MCHC 32.6 33.2 RDW 13.1 13.2 Plt Count 409 H 414 H MPV 10.7 10.7 Immature Gran % (Auto) 0.5 H Neut % (Auto) 40.0 L Lymph % (Auto) 49.5 H Chester % (Auto) 7.9 Eos % (Auto) 1.8 Baso % (Auto) 0.3 Lymph # (Auto) 3.3 Chester # (Auto) 0.5 Eos # (Auto) 0.1 Baso # (Auto) 0.0 Abs Immat Gran (auto) 0.03 Absolute Neuts (auto) 2.6 Absolute Nucleated RBC 0.000 0.000 Nucleated RBC % (auto) 0.0 0.0 PT 11.1 10.6 L INR 0.9 0.9 APTT 28.8 Anion Gap 12 Estim Creat Clear Calc 58.9 Estimated GFR > 60 POC Glucose Random Glucose 100 Estimat Average Glucose Hemoglobin A1c % Calcium 9.6 Total Bilirubin 0.3 AST 20 ALT 17 Alkaline Phosphatase 78 Troponin I High Sens < 2.7 2.8 Total Protein 7.2 Albumin 4.0 Triglycerides Cholesterol LDL Cholesterol, Calc HDL Cholesterol 01/22/24 01/23/24 01/23/24 21:57 05:12 11:24 MCV 86.3 MCH 28.7 MCHC 33.2 RDW 13.2 Plt Count 369 MPV 10.6 Immature Gran % (Auto) 0.4 Neut % (Auto) 32.6 L Lymph % (Auto) 58.8 H Chester % (Auto) 6.1 Eos % (Auto) 2.0 Baso % (Auto) 0.1 Lymph # (Auto) 4.3 Chester # (Auto) 0.5 Eos # (Auto) 0.2 Baso # (Auto) 0.0 Abs Immat Gran (auto) 0.03 Absolute Neuts (auto) 2.4 Absolute Nucleated RBC 0.000 Nucleated RBC % (auto) 0.0 PT INR APTT Anion Gap 13 Estim Creat Clear Calc 63.9 Estimated GFR > 60 POC Glucose 135 H 169 H Random Glucose 106 Estimat Average Glucose 120 Hemoglobin A1c % 5.8 Calcium 9.0 D Total Bilirubin AST ALT Alkaline Phosphatase Troponin I High Sens 3.4 Total Protein Albumin Triglycerides 221 H Cholesterol 230 H LDL Cholesterol, Calc 142 H HDL Cholesterol 44 Assessment and Plan (1) Chest pain: Status: Acute Plan 68 year old women admitted with chest pain and palpitations that have been ongoing for many years with LBBB on EKG Chest pain with CMP. unspecified Echo showing low EF 35-40% with moderate global hypokinesis Possible Plan is for [place] [facility] [place] continue asa, statin low sodium diet HLD Statin HTN continue lostartan GERD PPI DVT prophylaxis with Lovenox Attending Dr. Singh full code Quality Stroke Does the patient have a stroke diagnosis?: No VTE Prior VTE?: No VTE Risk Level:: Medical - moderate - high VTE Device Contraindication: Treatment Not Indicated VTE Drug Contraindication: N/A - Med Ordered
[2024-01-23] MEDS: Insulin Lispro 100 UNIT/ML 3 ML VIAL SUBCUT (12:17)
[2024-01-23 13:08] LABS: Glucose, Whole Blood 89 mg/dL (60-115)
[2024-01-23 14:49] VITALS: BP 125/60; PULSE 88; RESP 20; TEMP 36.4; O2SAT 98
[2024-01-23] MEDS: Nitroglycerin 2 % Oint 1 GM Packet 0.5 INCH TRANSDERMA ×2 (14:58→20:35)
[2024-01-23] MEDS: 0.9 % Sodium Chloride Flush 3 ML SYRINGE IVFLUSH (15:03)
[2024-01-23 16:09] LABS: Glucose, Whole Blood 107 mg/dL (60-115)
[2024-01-23 19:09] VITALS: BP 137/84; PULSE 92; RESP 20; TEMP 36.4; O2SAT 98
[2024-01-23 20:00] LABS: Glucose, Whole Blood 142 mg/dL (60-115)
[2024-01-23] MEDS: Melatonin 3 MG TABLET 9 MG PO (20:36)
--- NOTE | 2024-01-23 22:45 | PC.NURSE ---
Called in to the room, family member stated patient had one of her episodes of chest pain. After assessment patient stated it was not a chest pain but more neck pain on the right side - per patient there was a short period where she was short of breath, and felt pulsating pain on the right side of the neck near clavicle. It was very mild and short but the family wanted to make sure we were aware. At the time of the assessment patient was asymptomatic, breathing was normal and HR was 78bpm.
[2024-01-24] VITALS: BP 109/56; PULSE 74; RESP 20; TEMP 36.2; O2SAT 97
[2024-01-24] MEDS: 0.9 % Sodium Chloride Flush 3 ML SYRINGE IVFLUSH ×2 (00:27→09:32)
[2024-01-24 03:10] VITALS: BP 116/55; PULSE 64; RESP 20; TEMP 36.1; O2SAT 97
[2024-01-24 07:05] LABS: Glucose, Whole Blood 102 mg/dL (60-115)
[2024-01-24 07:17] VITALS: BP 118/63; PULSE 69; RESP 20; TEMP 36.4; O2SAT 97
[2024-01-24] MEDS: Nitroglycerin 2 % Oint 1 GM Packet 0.5 INCH TRANSDERMA (09:25)
[2024-01-24] MEDS: Enoxaparin Sodium 60 MG/0.6 ML SYRINGE 40 MG SUBCUT (09:26)
[2024-01-24] MEDS: Aspirin Enteric Coated 81 MG TABLET.DR PO (09:28)
[2024-01-24] MEDS: Valsartan 40 MG TABLET PO (09:28)
[2024-01-24] MEDS: Metoprolol Tartrate 12.5 MG HALFTAB PO (09:28)
[2024-01-24] MEDS: Atorvastatin Calcium 10 MG TABLET PO (09:28)
--- NOTE | 2024-01-24 10:33 | PM.DS ---
DS: Providers Provider Date of Service: 01/24/24 Date of admission: 01/22/24 20:46 Primary care physician: Doug Gomez NP Consults: 01/22/24 20:48 Consult to Cardiology Routine Consulting Provider[place] [facility] Reason for consultation: Unstable angina, LBBB Has provider been notified: Yes DS: Diagnosis Discharge Diagnosis (1) Chest pain: Status: Acute DS: Summary Hospital Course Hospital Course: History and physical as per admitting provider. Stephanie Palafox is a 68 years old woman with past medical history significant for impaired glucose tolerance on metformin, GERD/PUD, hyperlipidemia and essential hypertension presents to the emergency department complaining mid chest pain. Patient stated that she has been having chest pain episodes over the last 2 years. Initially the chest pain happened with exertion mode over the last several months i occurs with minimal exertion oxygen with shortness on breath and palpitations. She stated last night was very severe, intensity 10/10. It radiated to her neck. These events last several minutes. Denied nausea, vomiting, sweating or dizziness. She denies history of CHF or CAD. Patient commented that her 40 years old daughter we will undergo cardiac catheterization soon. She denied tobacco smoking, alcohol abuse or illicit drug use. On January 17 of this year she underwent ECG that showed LBBB. Previous ECGs showed no left bundle block. She takes Tylenol as needed for knee pain. In the ED, she was found to have stable vital signs. Blood workup showed no leukocytosis or thrombocytopenia. Troponin is negative x2. There are no significant electrolyte imbalances. Renal and liver function are normal. ECG showed LBBB. ED tx: Aspirin 324 mg p.o., Lovenox 60 mg subQ. 68-year-old woman treated for chest pain with palpitations. Echocardiogram showing EF of 35-40% with moderate global hypokinesis. She was seen and evaluated by Cardiology with recommendation to transfer to [facility] for cardiac catheterization. And troponins were negative, EKG showed left bundle branch block. Patient reported chest pressure and palpitation type feeling in the neck. No arrhythmia noted on telemetry. Continue patient on aspirin and statin. She has not on therapeutic anticoagulation. Hyperlipidemia. Continue statin Hypertension. Continue losartan GERD. Continue PPI Time Attestation Discharge Coordination Time (in mins): 42 Quality: Safe Use of Opioids Does Pt have an Active Cancer Diagnosis on the Problem List?: No Quality: Stroke Does the patient have a stroke diagnosis?: No Physical Exam Vital Signs: Vital Signs: Last Vital Signs Temp 97.6 F 01/24/24 07:17 Pulse 69 01/24/24 07:17 Resp 20 01/24/24 07:17 BP 118/63 01/24/24 07:17 Pulse Ox 97 01/24/24 07:17 O2 Del Method Room Air 01/24/24 07:17 BMI result Body Mass Index 27.3 Appearing in no acute distress head is normocephalic atraumatic eyes pupils are PERRLA sclera is anicteric mouth throat mucous membranes are intact and moist neck is supple no lymphadenopathy, no JVD noted lung sounds are clear to auscultation heart regular rate rhythm, clear S1, S2 positive bowel sounds, abdomen is soft, nontender neuro patient is alert x3, no focal deficits DS: Data Data Completed and Pending Labs on day of discharge: Laboratory Results - last 24 hr 01/23/24 01/23/24 01/23/24 07:02 11:24 16:06 POC Glucose 89 169 H 107 01/23/24 01/24/24 19:57 07:00 POC Glucose 142 H 102 Discharge Plan Discharge Anticipated Discharge Date/Time: 01/24/24 10:21 Patient Disposition: er Acute Care Hospital Discharge Diagnosis: Chest pain palpitations Discharge Medications: New aspirin 81 mg Tablet,Delayed Release (Dr/Ec) 81 mg PO DAILY Qty: 30 0RF Continued metformin 500 mg tablet 750 mg PO DAILY ammonium lactate 12 % lotion 1 appl topical BID atorvastatin 10 mg tablet 10 mg DAILY omeprazole 40 mg capsule,delayed release(DR/EC) 40 mg PO DAILY albuterol sulfate 90 mcg/actuation HFA aerosol inhaler 2 puff INHALATION Q6H PRN (Reason: Shortness Of Breath Or Wheezing) naproxen 500 mg tablet 500 mg PO BID PRN (Reason: pain) valsartan 40 mg tablet 40 mg PO BID cyclosporine [Restasis] 0.05 % dropperette 1 drp ophthalmic (eye) BID melatonin 10 mg Tablet 10 mg PO BEDTIME multivitamin with folic acid [Daily-Romie (with folic acid)] 400 mcg tablet 1 tab PO DAILY Discharge Orders: Discharge Order (Routine); Ordered 01/24/24 Ordered By: Barb Goodman Diet: Advance to usual diet Activity on Discharge: As tolerated Stand Alone Forms: Patient Portal Discharge page Care Plan Goals: Take all medications as prescribed Health Concerns: Chest pain Palpitations Plan of Treatment: Transfer to tertiary care facility for cardiac catheterization Assessment: See discharge summary
[2024-01-24 10:57] VITALS: BP 107/71; PULSE 73; RESP 20; TEMP 36.8; O2SAT 97
--- NOTE | 2024-01-24 11:09 | PM.PNCARD ---
Subjective Subjective Date of Service: 01/24/24 Principal diagnosis: Cardiomyopathy, chest pain and palpitations. Interval history: Patient echocardiogram shows moderate LV systolic dysfunction surprised. Cause unknown. Patient has been having recurrent chest pain. No clear evidence of acute coronary syndrome. Also no significant arrhythmias noted. Hemodynamically stable. Review of Systems Review of Systems Yes all other systems are reviewed and are negative Physical Exam Vital Signs: Last Vital Signs Temp 98.3 F 01/24/24 10:57 Pulse 73 01/24/24 10:57 Resp 20 01/24/24 10:57 BP 107/71 01/24/24 10:57 Pulse Ox 97 01/24/24 10:57 O2 Del Method Room Air 01/24/24 10:57 BMI result Body Mass Index 27.3 Const General: cooperative, comfortable, no acute distress, alert, awake and Physically active Nutritional Appearance: average body habitus Orientation/consciousness: patient oriented x3 Limitations: no limitations HEENT Head: Yes normocephalic and Yes atraumatic Neck Neck: Yes trachea midline, Yes supple and Yes no JVD Resp Effort & Inspection: normal respiratory effort Auscultation: clear to auscultation bilaterally Cardio Jugular venous distension: no JVD Palpation: normal PMI Rate: regular rate Rhythm: regular rhythm Heart sounds: S1 normal heart sound present, S2 normal heart sound present, no click, no gallops, no murmurs and no rubs GI Auscultation: normal bowel sounds Skin General skin exam: no rashes or lesions noted Neuro General: patient oriented x3 and no focal motor deficits Extrem General: Yes no clubbing, cyanosis or edema Psych Appearance: grossly normal Objective Labs and Meds 01/23/24 05:12 01/23/24 05:12 Lab results: Laboratory Results - last 24 hr 01/23/24 01/23/24 01/23/24 07:02 11:24 16:06 POC Glucose 89 169 H 107 01/23/24 01/24/24 19:57 07:00 POC Glucose 142 H 102 Progress Note: A&P Assessment and plan (1) Cardiomyopathy: Status: Acute Assessment and Plan: Cardiomyopathy with unclear etiology with recurrent episodes of palpitations and chest pain. No clear evidence of acute coronary syndrome. Question etiology of cardiomyopathy. Would suggest cardiac catheterization to evaluate for coronary artery disease given her symptoms and new onset left bundle-branch block. If this is negative etiology of cardiomyopathy could be tachycardia mediated and/or left bundle-branch block mediated. Continue with current metoprolol and valsartan for neurohormonal modulation. No signs or symptoms of heart failure. No significant arrhythmias noted currently. There is no clear indication for nitropaste. Also no indication for anticoagulation at this point time. Discussed with her and her daughter in details about cardiac catheterization including risk, benefits, alternatives. Arrangements being made for transfer. Will follow with her as outpatient Time Spent With Patient Time: Total time managing care of this patient today ____ minutes. Progress Note: Quality Stroke Does the patient have a stroke diagnosis?: No Procedures Date of Service Date of Service: 01/24/24
[2024-01-24 11:20] LABS: Glucose, Whole Blood 136 mg/dL (60-115)
--- NOTE | 2024-01-24 11:53 | MHC.CM.PN ---
Patient will be transferred to [facility] today.
[2024-01-24] MEDS: Acetaminophen 325 MG TABLET 650 MG PO (12:18)
[2024-01-24 15:00] VITALS: BP 113/56; PULSE 78; RESP 20; TEMP 36.3; O2SAT 98
[2024-01-24 16:00] LABS: Glucose, Whole Blood 91 mg/dL (60-115)
== END 2024-01-24 17:37 | disposition short-term general hospital (02) | DRG 313 ==
LOC: HO.ED 20:12 → HO.EDOVER 20:50 → HO.IMC 01-23 07:38
PROVIDERS: Registered Nurse Emergency; Admitting Provider Internal Medicine; Emergency Provider Emergency Medicine Emergency Medical Services; PCP Nurse Practitioner Family; Visit Provider Nurse Practitioner Acute Care
DX: R07.9 Chest pain, unspecified (principal); I42.9 Cardiomyopathy, unspecified; I44.7 Left bundle-branch block, unspecified; E78.00 Pure hypercholesterolemia, unspecified; I10 Essential (primary) hypertension; K21.9 Gastro-esophageal reflux disease without esophagitis; R73.03 Prediabetes; Z79.82 Long term (current) use of aspirin; Z79.84 Long term (current) use of oral hypoglycemic drugs; Z79.899 Other long term (current) drug therapy
CPT/HCPCS: 36415; 71046; 80048; 80053; 80061; 82947; 83036; 84484; 85025; 85027; 85610; 85730; 93005; 93306; 99285; J1650

== ENCOUNTER → 2024-01-22 11:41 | Outpatient (BNV) | payer MEDICARE, SELFPAY | PROVIDERS: Visit Provider Internal Medicine Cardiovascular Disease | DX: R07.9 Chest pain, unspecified (principal); I44.7 Left bundle-branch block, unspecified | CPT/HCPCS: 93010 ==

== ENCOUNTER 2024-01-22 20:46 | Outpatient (BNV) | payer OTHER, SELFPAY | END 2024-01-23 07:00 | PROVIDERS: Admitting Provider Internal Medicine; Emergency Provider Emergency Medicine Emergency Medical Services; Visit Provider Internal Medicine Cardiovascular Disease | DX: I20.0 Unstable angina (principal) | CPT/HCPCS: 93306 ==

== ENCOUNTER → 2024-01-22 20:46 | Outpatient (BNV) | payer OTHER, SELFPAY | PROVIDERS: Admitting Provider Internal Medicine; Emergency Provider Emergency Medicine Emergency Medical Services; Visit Provider Internal Medicine Cardiovascular Disease | DX: I42.9 Cardiomyopathy, unspecified (principal) | CPT/HCPCS: 99222; 99233 ==

== ENCOUNTER → 2024-01-22 20:46 | Outpatient (BNV) | payer OTHER, SELFPAY | PROVIDERS: Admitting Provider Internal Medicine; Emergency Provider Emergency Medicine Emergency Medical Services; Visit Provider Internal Medicine | DX: I20.0 Unstable angina (principal); I10 Essential (primary) hypertension; E78.5 Hyperlipidemia, unspecified; R73.02 Impaired glucose tolerance (oral); K21.9 Gastro-esophageal reflux disease without esophagitis; R07.9 Chest pain, unspecified | CPT/HCPCS: 99223; 99232; 99239 ==

== ENCOUNTER → 2024-01-25 23:59 | Outpatient (BNV) | payer OTHER, SELFPAY | PROVIDERS: PCP Nurse Practitioner Family; Visit Provider Internal Medicine Cardiovascular Disease | DX: I20.89 Other forms of angina pectoris (principal) | CPT/HCPCS: 93458; 99152 ==

== ENCOUNTER → 2024-02-02 13:30 | Outpatient (REF) | payer OTHER, SELFPAY ==
--- NOTE | 2024-02-02 13:34 | HM_ITS ---
* Total monitoring time 6 days. * Underlying rhythm is sinus with an average rate of 81/Min. * Rare supraventricular and ventricular ectopy. * No significant arrhythmias. * No significant pauses or AV blocks. * No patient markers or diary events. MTDD
== END ==
LOC: HO.CARD 13:30
PROVIDERS: Visit Provider Internal Medicine Cardiovascular Disease
DX: I42.9 Cardiomyopathy, unspecified (principal); I49.3 Ventricular premature depolarization
CPT/HCPCS: 93242

== ENCOUNTER → 2024-02-02 13:34 | Outpatient (BNV) | payer OTHER, SELFPAY | PROVIDERS: Visit Provider Internal Medicine | DX: R00.0 Tachycardia, unspecified (principal) | CPT/HCPCS: 93244 ==

== ENCOUNTER 2024-02-19 14:41 | Outpatient (AMB) | payer OTHER, SELFPAY ==
[2024-02-19 15:01] VITALS: BMI 27.3
--- NOTE | 2024-02-19 15:01 | MHC.OFFVIS ---
Vital Signs 02/19/24 15:01 Height 5 ft Weight 139 lb 12.369 oz BMI 27.3 Intake Visit Reasons: f/up holter Research Anthropologist Required: Yes Research Anthropologist Language: Aircraft Charter Dispatcher Name: lupe enciso [id number] Goat Farmer: Goat Farmer Present Allergies No Known Allergies* Allergy (Uncoded 07/20/20 14:27) Medication List - Last Reconciled 02/19/24 by Sonali Frederick, SKIVING MACHINE OPERATOR-C albuterol sulfate 90 mcg/actuation 2 puffs inhalation Q6H PRN ammonium lactate 12% 1 appl topical BID aspirin 81 mg PO DAILY atorvastatin 10 mg DAILY cyclosporine 0.05% (Restasis) 1 drp ophthalmic (eye) BID dapagliflozin propanediol 10 mg PO DAILY melatonin 10 mg PO BEDTIME metformin 750 mg PO DAILY metoprolol succinate ER 25 mg PO DAILY multivitamin with folic acid 400 mcg (Daily-Romie (with folic acid)) 1 tab PO DAILY naproxen 500 mg PO BID PRN omeprazole 40 mg PO DAILY valsartan 40 mg PO BID HPI HPI f/up holter: Details: Stephanie is a 68-year-old female with past medical history of hypertension, hyperlipidemia, impaired fasting glucose who was recently admitted to [facility] for chest discomfort, abnormal EKG with left bundle branch block. Her troponin levels were normal. Her echocardiogram did show inferior wall motion abnormality and reduced EF. She did have symptoms concerning for unstable angina. She was transferred to [facility] for cardiac catheterization showing normal coronary arteries. Today she reports that she continues to have episodes of palpitation and a tightness in her throat occurring 3-5 times daily. She has started her new heart medications and does not feel that they have helped at all. She does recall having her symptoms when she wore the heart monitor. She has no anterior chest discomfort. No significant shortness of breath, no PND, orthopnea or edema. No lightheadedness, presyncope, syncope, falls. Taking meds as directed. Daughter is present. Certified service order dispatcher used. [facility] Medical History (Updated 02/19/24 @ 17:25 by Sonali Frederick, SKIVING MACHINE OPERATOR-C) Essential hypertension GERD (gastroesophageal reflux disease) Impaired glucose tolerance Hyperlipidemia Surgical History (Updated 02/20/24 @ 08:21 by Sonali Frederick NP-C) H/O inguinal hernia repair H/O bladder repair surgery History of hand surgery H/O: hysterectomy Social History Household Members: Children Housing: House Do you presently have visiting nurse or other home services: No Patient Tobacco Use Status: Never used Tobacco service: No Review of Systems Const All systems reviewed & are unremarkable except as noted in HPI and below ENT Denies dizziness Card Details: palpitation and tightness in throat 3-5 times daily Denies chest pain, Denies chest pain at rest, Denies chest pain with activity, Denies rapid heart rate, Denies pedal edema, Denies edema, Denies leg edema, Denies lightheadedness, Denies palpitations, Reports dyspnea, Denies dyspnea on exertion and Denies orthopnea Resp Denies cough, Reports dyspnea and Denies dyspnea on exertion GI Denies hematochezia and Denies change in stool character Musc Denies abnormal gait, Denies limited range of motion, Denies muscle cramps, Denies muscle weakness, Denies numbness, Denies radiating pain into limb, Denies stiffness and Denies tingling Neuro Denies abnormal gait, Denies dizziness, Denies numbness and Denies tingling Endo Denies palpitations Physical Exam Vital Signs: BMI result Body Mass Index 27.3 Const General: cooperative, healthy appearing, comfortable and no acute distress Orientation/consciousness: patient oriented x3 Neck Neck: Yes normal visual inspection and Yes no JVD Resp Effort & Inspection: normal respiratory effort Auscultation: clear to auscultation bilaterally, no crackles, no rales, no rhonchi and no wheezes Cardio Jugular venous distension: no JVD Rate: regular rate Rhythm: regular rhythm Heart sounds: S1 normal heart sound present, S2 normal heart sound present, no murmurs and no rubs Neuro General: patient oriented x3 Extrem General: Yes normal to inspection and No no pedal edema Psych Appearance: grossly normal Mental Status: mental status grossly normal Speech and movement: Normal speech and movement present Assessment & Plan Assessment & Plan (1) Cardiomyopathy: Code(s): I42.9 - Cardiomyopathy, unspecified Category: Medical Plan: New finding of cardiomyopathy. Recent hospital admission for chest discomfort and abnormal EKG. EKG did show left bundle branch block of unknown chronicity. Echocardiogram done 01/23/2024 showed EF 35-40%, basal inferior wall motion abnormality and impaired relaxation. She did have cardiac catheterization done 01/25/2024 showing normal coronary arteries. A Holter monitor done 02/02/2024 for 6 days shows sinus rhythm with average heart rate 81, rare SVE and VE She does recall having her symptom of palpitation and throat discomfort when wearing the Holter monitor. Her cardiomyopathy is nonischemic and may be related to left bundle branch block. She has been started on metoprolol XL and had already been on valsartan. Farxiga was added. Labs done 01/23/2024 showed creatinine 0.7. At this time will have her stop valsartan and roll changer to Entresto to help with neurohormonal modulation. Seen for medication change reviewed with her. Plan for blood pressure check and BMP in 1 week. Blood pressure recheck done by me in the office was 122/68. Her symptom of palpitation and throat discomfort is unclear as there is no arrhythmia that correlates and she has no CAD. Instructed on relaxation, rest if she has her symptoms. Can further discuss with PCP as well. Will recheck echocardiogram 3 months after the start of med management. Diagnosis of cardiomyopathy and left bundle branch block reviewed with her. Signs and symptoms of heart failure reviewed. Cardiology office visit 3 months, sooner if needed. Emergency care if ever needed for symptoms in the meantime. (2) Status post cardiac catheterization: Comment: 01/25/2024, normal coronary arteries Code(s): Z98.890 - Other specified postprocedural states Category: Surgical Plan: As above (3) Left bundle branch block (LBBB): Code(s): I44.7 - Left bundle-branch block, unspecified Category: Medical Plan: Finding on EKG, unclear chronicity (4) Essential hypertension: Code(s): I10 - Essential (primary) hypertension Category: Medical Plan: Normal range at this time. Changing valsartan to Entresto (5) Angina at rest: Code(s): I20.89 - Other forms of angina pectoris Category: Medical Plan: Throat symptoms 3-5 times daily consisting of palpitation and discomfort. No clear cardiac findings as above (6) Hospital discharge follow-up: Code(s): Z09 - Encounter for follow-up examination after completed treatment for conditions other than malignant neoplasm Category: Medical Plan: [place] [facility] Plan Time spent on chart review, documentation, interview and assessment Orders: Orders Basic Metabolic Panel 02/19/24 I42.9 - Cardiomyopathy, unspecified CA echo limited 05/06/24 I42.9 - Cardiomyopathy, unspecified Medications: New sacubitril-valsartan 24-26 mg (Entresto) Replaces Valsartan 1 tab PO BID 60 tabs 5RF Coding Level of Care Code Est Pt Level 4 (33651) Diagnoses Cardiomyopathy I42.9 Status post cardiac catheterization Z98.890 Left bundle branch block (LBBB) I44.7 Essential hypertension I10 Angina at rest I20.89 Hospital discharge follow-up Z09 Time Spent (min) 35
== END 2024-02-19 15:51 | disposition home or self-care (01) ==
PROVIDERS: PCP Nurse Practitioner Family; Visit Provider Nurse Practitioner Family
DX: I42.9 Cardiomyopathy, unspecified (principal); Z98.890 Other specified postprocedural states; I44.7 Left bundle-branch block, unspecified; I10 Essential (primary) hypertension; I20.89 Other forms of angina pectoris; Z09 Encounter for follow-up examination after completed treatment for conditions other than malignant neoplasm
CPT/HCPCS: 99214

== ENCOUNTER → 2024-02-19 14:41 | Outpatient (BNVA) | payer OTHER, SELFPAY | PROVIDERS: PCP Nurse Practitioner Family; Visit Provider Nurse Practitioner Family | DX: I10 Essential (primary) hypertension (principal); I42.9 Cardiomyopathy, unspecified; I44.7 Left bundle-branch block, unspecified; I20.89 Other forms of angina pectoris; R00.2 Palpitations; E78.5 Hyperlipidemia, unspecified; Z09 Encounter for follow-up examination after completed treatment for conditions other than malignant neoplasm; Z98.890 Other specified postprocedural states | CPT/HCPCS: 99212 ==

== ENCOUNTER → 2024-05-06 08:52 | Outpatient (REF) | payer OTHER, SELFPAY ==
--- NOTE | 2024-05-06 08:55 | CA_ITS ---
Transthoracic Echocardiogram Amended Patient (Last, First, Middle): Stephanie Palafox, Gender: Female Date of : 1955 Age: 68 Procedure Date: 05/06/2024 Procedure Type: Transthoracic Echocardiogram Location: OP Height: 152.4 cm Weight: 65.77 kg BSA: 1.63 m2 Heart Rate: bpm BP: 130 / 80 mmHg Branch Billing Payroll Clerk: JOSEPH Paredes MD: Sonali Frederick HEEL SLICKERBhavna Inventory Control Supervisor: Jeffery Foster MD Symptoms: I42.9 - Cardiomyopathy, unspecified Study Quality: Fair ECG Rhythm: Sinus Conclusions: - Mildly to moderately reduced LV ejection fraction 40-45% Findings Left Ventricle Normal left ventricular cavity size. The left ventricular systolic function is mild to moderately decreased. The visually estimated ejection fraction is between 40-45%. There is paradoxical septal motion consistent with a left bundle branch block. Spectral Doppler is indicative of an impaired relaxation filling pattern. E/E prime ratio is between 8 and 15 consistent with indeterminate filling pressures. Prior Study Comparison Changes noted compared to prior study dated: 01/23/2024. LV function is marginally improved Measurements 2D Linear Measurements IVSd: 1.18 0.6-0.9/0.6-1.0 cm LVIDd: 3.65 3.9-5.3/4.2-5.9 cm LVIDd Index: 2.24 2.4-3.2/2.2-3.1 cm/m2 LVIDs: 3.16 2.0-3.6 cm LVPWd: 1.05 0.7-1.1 cm LV Mass: 160.86 67-162/88-224 g LV Mass Index: 98.69 43-95/49-115 g/m2 2D Systolic Function EF 4C: 42.60 >55% EF 2C: 41.20 >55% EF BiP: 41.20 >55% Mitral Valve MV Pk E: 0.66 MV PK A: 1.02 MV Decel Time: 210.00 E/A: 0.60 E'Lateral: 9.14 E'Medial: 5.22 E/E' Med: 12.60 E/E' Lat: 7.20 PHT: 61.00 MVA PHT: 3.61 Decel [place]: 3.12 Diastolic Function MV Pk E: 0.66 MV Pk A: 1.02 E/A: 0.60 E'Medial: 5.22 E/E' Med: 12.60 E' Laterial: 9.14 E/E' Lat: 7.20 Tricuspid Valve TR Pk Kirit: 2.59 TR Pk Grad: 27.00 RA Press: 3.00 RVSP: 30.00 Updated in Other Vendor System with Status of Final Jeffery Foster MD electronically signed on 05/06/2024 11:23:38 AM with status of Final
== END ==
LOC: HO.CARD 08:52
PROVIDERS: Visit Provider Nurse Practitioner Family
DX: I42.9 Cardiomyopathy, unspecified (principal)
CPT/HCPCS: 93308

== ENCOUNTER → 2024-05-06 08:55 | Outpatient (BNV) | payer OTHER, SELFPAY | PROVIDERS: Visit Provider Internal Medicine Cardiovascular Disease | DX: I44.7 Left bundle-branch block, unspecified (principal); I51.89 Other ill-defined heart diseases | CPT/HCPCS: 93308; 93321; 93325 ==

== ENCOUNTER 2024-05-21 13:39 | Outpatient (AMB) | payer OTHER, SELFPAY ==
[2024-05-21 13:40] VITALS: BP 114/72; PULSE 75; BMI 27.2
--- NOTE | 2024-05-21 13:40 | MHC.OFFVIS ---
Vital Signs 05/21/24 13:40 Height 5 ft Weight 139 lb 5.314 oz BMI 27.2 BP 114/72 Blood Pressure Location Lt brachial Position Sitting Pulse 75 Pulse Source Pulse Oximeter Intake Visit Reasons: 3 mth f/up s/p echo Low Emission Automobile Designer Required: Yes Low Emission Automobile Designer Language: Platen Press Feeder Services: Low Emission Automobile Designer Present Allergies No Known Allergies* Allergy (Uncoded 07/20/20 14:27) Medication List - Last Reconciled 05/21/24 by Sonali Frederick NP-C albuterol sulfate 90 mcg/actuation 2 puffs inhalation Q6H PRN ammonium lactate 12% 1 appl topical BID atorvastatin 10 mg DAILY cyclosporine 0.05% (Restasis) 1 drp ophthalmic (eye) BID dapagliflozin propanediol 10 mg PO DAILY melatonin 10 mg PO BEDTIME metformin 750 mg PO DAILY metoprolol succinate ER 25 mg PO DAILY multivitamin with folic acid 400 mcg (Daily-Romie (with folic acid)) 1 tab PO DAILY omeprazole 40 mg PO DAILY sacubitril-valsartan 24-26 mg (Entresto) 1 tab PO BID HPI HPI 3 mth f/up s/p echo: Details: Stephanie is a 68-year-old female with past medical history of hypertension, hyperlipidemia, impaired fasting glucose who was recently admitted to [facility] for chest discomfort, abnormal EKG with left bundle branch block. Her troponin levels were normal. Her echocardiogram did show inferior wall motion abnormality and reduced EF. She did have symptoms concerning for unstable angina. She was transferred to [facility] for cardiac catheterization showing normal coronary arteries. Today she reports that she continues to have episodes of palpitation and a tightness in her throat occurring 3-5 times daily. She has started her new heart medications and does not feel that they have helped at all. She does recall having her symptoms when she wore the heart monitor. She has no anterior chest discomfort. No significant shortness of breath, no PND, orthopnea or edema. No lightheadedness, presyncope, syncope, falls. Taking meds as directed. Daughter is present. Certified banquet prep cook used. [facility] Medical History Essential hypertension GERD (gastroesophageal reflux disease) Impaired glucose tolerance Hyperlipidemia Surgical History H/O inguinal hernia repair H/O bladder repair surgery History of hand surgery H/O: hysterectomy Social History Household Members: Children Housing: House Do you presently have visiting nurse or other home services: No Patient Tobacco Use Status: Never used Tobacco service: No Review of Systems Const All systems reviewed & are unremarkable except as noted in HPI and below ENT Denies dizziness Card Reports chest pain, Denies chest pain at rest, Denies chest pain with activity, Reports rapid heart rate, Denies pedal edema, Denies edema, Denies leg edema, Denies lightheadedness, Reports palpitations, Reports dyspnea, Reports dyspnea on exertion and Denies orthopnea Resp Denies cough, Reports dyspnea and Reports dyspnea on exertion GI Denies hematochezia and Denies change in stool character Musc Denies abnormal gait, Denies limited range of motion, Denies muscle cramps, Denies muscle weakness, Denies numbness, Denies radiating pain into limb, Denies stiffness and Denies tingling Neuro Denies abnormal gait, Denies dizziness, Denies numbness and Denies tingling Endo Reports palpitations Physical Exam Vital Signs: Last Vital Signs Pulse 75 05/21/24 13:40 BP 114/72 05/21/24 13:40 BMI result Body Mass Index 27.2 Const General: cooperative, healthy appearing, comfortable and no acute distress Orientation/consciousness: patient oriented x3 Neck Neck: Yes normal visual inspection and Yes no JVD Resp Effort & Inspection: normal respiratory effort Auscultation: clear to auscultation bilaterally, no crackles, no rales, no rhonchi and no wheezes Cardio Jugular venous distension: no JVD Rate: regular rate Rhythm: regular rhythm Heart sounds: S1 normal heart sound present, S2 normal heart sound present, no murmurs and no rubs Neuro General: patient oriented x3 Extrem General: Yes normal to inspection and No no pedal edema Psych Appearance: grossly normal Mental Status: mental status grossly normal Speech and movement: Normal speech and movement present Assessment & Plan Assessment & Plan (1) Cardiomyopathy: Code(s): I42.9 - Cardiomyopathy, unspecified Category: Medical Plan: New finding of cardiomyopathy[place] [facility] for chest discomfort and abnormal EKG. EKG did show left bundle branch block of unknown chronicity. Echocardiogram done 01/23/2024 showed EF 35-40%, basal inferior wall motion abnormality and impaired relaxation. She did have cardiac catheterization done 01/25/2024 showing normal coronary arteries. A Holter monitor done 02/02/2024 for 6 days shows sinus rhythm with average heart rate 81, rare SVE and VE She does recall having her symptom of palpitation and throat discomfort when wearing the Holter monitor. Her cardiomyopathy is nonischemic and may be related to left bundle branch block. She was been started on metoprolol XL and had already been on valsartan. Farxiga was added. Last visit her valsartan was changed to Entresto. Labs are due and she was reminded of this. Echocardiogram done 05/06/2024 showing EF 40-45%, paradoxical septal motion consistent with left bundle branch block. At this time she continues to report a symptom of a discomfort in her chest and into her throat with heart palpitations and a feeling of shortness of breath. She believes this symptom is cardiac. Offered reassurance that she has no CAD. Will further evaluate for arrhythmia with a cardiac event monitor. Continue metoprolol XL, Entresto, Farxiga for neurohormonal modulation. She is not requiring diuretics. Emergency care if ever needed for symptoms. Cardiology follow-up in 3 months, sooner if needed. (2) Status post cardiac catheterization: Comment: 01/25/2024, normal coronary arteries Code(s): Z98.890 - Other specified postprocedural states Category: Surgical Plan: As above (3) Left bundle branch block (LBBB): Code(s): I44.7 - Left bundle-branch block, unspecified Category: Medical Plan: Finding on EKG, unclear chronicity (4) Essential hypertension: Code(s): I10 - Essential (primary) hypertension Category: Medical Plan: Normal range at this time. Changing valsartan to Entresto (5) Angina at rest: Code(s): I20.89 - Other forms of angina pectoris Category: Medical Plan: Chest/Throat symptoms 3-5 times daily consisting of palpitation,discomfort, shortness of breath. No clear cardiac findings this symptom. Checking cardiac event monitor (6) Palpitation: Code(s): R00.2 - Palpitations Category: Medical Plan: As above Plan Time spent on chart review, documentation, interview and assessment Orders: Orders ECG 30 day event monitor Today R00.2 - Palpitations Coding Level of Care Code Est Pt Level 4 (30607) Diagnoses Cardiomyopathy I42.9 Status post cardiac catheterization Z98.890 Left bundle branch block (LBBB) I44.7 Essential hypertension I10 Angina at rest I20.89 Palpitation R00.2 Time Spent (min) 28
== END 2024-05-21 14:18 | disposition home or self-care (01) ==
PROVIDERS: PCP Nurse Practitioner Family; Visit Provider Nurse Practitioner Family
DX: I42.9 Cardiomyopathy, unspecified (principal); Z98.890 Other specified postprocedural states; I44.7 Left bundle-branch block, unspecified; I10 Essential (primary) hypertension; I20.89 Other forms of angina pectoris; R00.2 Palpitations
CPT/HCPCS: 99214

== ENCOUNTER → 2024-05-21 13:39 | Outpatient (BNVA) | payer OTHER, SELFPAY | PROVIDERS: PCP Nurse Practitioner Family; Visit Provider Nurse Practitioner Family | DX: I42.9 Cardiomyopathy, unspecified (principal); I44.7 Left bundle-branch block, unspecified; I10 Essential (primary) hypertension; I20.89 Other forms of angina pectoris; R00.2 Palpitations; Z98.890 Other specified postprocedural states | CPT/HCPCS: 99212 ==

== ENCOUNTER → 2024-05-23 14:00 | Outpatient (REF) | payer OTHER, SELFPAY ==
--- NOTE | 2024-05-23 14:06 | HM_ITS ---
Cardiac event monitor Indication: Palpitations Technique: Patient was hooked up to cardiac event monitor on 05/23/2024 to 06/22/2024 with a total where time of 27.5 days. Findings: Baseline was normal sinus rhythm with 98% of time heart rate in sinus rhythm with average heart of 78 beats per minute. Minimum monitor 50 beats per minute and maximum heart rate 120 beats per minute sinus tachycardia. There were no significant pauses noted. There were no significant sustained arrhythmias noted. Rare PACs and PVCs noted with both burden of less than 1%. Patient triggered the event 27 times with reported symptoms 2 times. Most of this events correlated with sinus rhythm. Conclusion: 1. Baseline was normal sinus rhythm with no pauses 2. No sustained arrhythmias noted 3. Rare PACs and PVCs noted 4. Patient triggered events correlated with sinus rhythm. [facility]
[2024-05-23 15:50] LABS: Anion Gap 11 (12-20); Blood Urea Nitrogen 14 mg/dL (9-16); Calcium 9.9 mg/dL (8.4-10.2); Carbon Dioxide 27 mmol/L (22-29); Chloride 108 mmol/L (96-108); Estimated Glomerular Filt Rate > 60; Glucose Random 92 mg/dL (60-115); Potassium 4.1 mmol/L (3.3-5.1); Sodium 142 mmol/L (135-145)
== END ==
LOC: HO.CARD 14:00
PROVIDERS: PCP Nurse Practitioner Family; Visit Provider Nurse Practitioner Family
DX: R00.2 Palpitations (principal); I42.9 Cardiomyopathy, unspecified
CPT/HCPCS: 36415; 80048; 93270

== ENCOUNTER → 2024-05-23 14:06 | Outpatient (BNV) | payer OTHER, SELFPAY | PROVIDERS: PCP Nurse Practitioner Family; Visit Provider Internal Medicine Cardiovascular Disease | DX: I49.1 Atrial premature depolarization (principal); I49.3 Ventricular premature depolarization | CPT/HCPCS: 93272 ==

== ENCOUNTER 2024-08-22 13:20 | Outpatient (AMB) | payer OTHER, SELFPAY ==
--- NOTE | 2024-08-22 13:22 | A.OFFVIS_ITS ---
Vital Signs 08/22/24 13:23 Height 5 ft Weight 138 lb 14.259 oz BMI 27.1 BP 124/72 Blood Pressure Location Lt brachial Position Sitting Pulse 65 Pulse Source Pulse Oximeter Intake Visit Reasons: 3 mth f/up darrin Night Club Manager Required: No License Distributor: License Distributor Present Allergies No Known Allergies* Allergy (Uncoded 08/22/24 13:26) Agitated Medication List - Last Reconciled 08/22/24 by Sonali Frederick NP-C albuterol sulfate 90 mcg/actuation 2 puffs inhalation Q6H PRN ammonium lactate 12% 1 appl topical BID atorvastatin 10 mg DAILY cyclosporine 0.05% (Restasis) 1 drp ophthalmic (eye) BID dapagliflozin propanediol 10 mg PO DAILY melatonin 10 mg PO BEDTIME metformin 750 mg PO DAILY metoprolol succinate ER 25 mg PO DAILY multivitamin with folic acid 400 mcg (Daily-Romie (with folic acid)) 1 tab PO DAILY omeprazole 40 mg PO DAILY sacubitril-valsartan 24-26 mg (Entresto) 1 tab PO BID 90 days HPI HPI 3 mth f/up darrin: Details: Stephanie is a 68-year-old female with past medical history of hypertension, hyperlipidemia, impaired fasting glucose who was admitted to [facility] in January 2024 for chest discomfort, abnormal EKG with left bundle branch block. Her troponin levels were normal. Her echocardiogram did show inferior wall motion abnormality and reduced EF. She did have symptoms concerning for unstable angina. She was transferred to [facility] for cardiac catheterization showing normal coronary arteries. Since then she has been reporting issues with palpitations and she recently underwent a cardiac event monitor without concerning findings. Today she reports that she continues to have episodes of palpitation, tachycardia that creates a feeling up to her throat which can occur a few times each day. This symptom is not getting worse with time. She has no lightheadedness, presyncope, syncope, falls. No chest discomfort. No significant shortness of breath, no PND, orthopnea or edema. Taking meds as directed. Daughter is present. She is assisting with Indonesian interpretation at their request. [facility]LY [facility], [facility] Medical History Essential hypertension GERD (gastroesophageal reflux disease) Impaired glucose tolerance Hyperlipidemia Surgical History H/O inguinal hernia repair H/O bladder repair surgery History of hand surgery H/O: hysterectomy Social History Household Members: Children Housing: House Do you presently have visiting nurse or other home services: No Patient Tobacco Use Status: Never used Tobacco service: No Review of Systems Const All systems reviewed & are unremarkable except as noted in HPI and below ENT Denies dizziness Card Denies chest pain, Denies chest pain at rest, Denies chest pain with activity, Denies rapid heart rate, Denies pedal edema, Denies edema, Denies leg edema, Denies lightheadedness, Denies palpitations, Denies dyspnea, Denies dyspnea on exertion and Denies orthopnea Resp Denies cough, Denies dyspnea and Denies dyspnea on exertion GI Denies hematochezia and Denies change in stool character Musc Details: Palpitation type feeling in her throat Denies abnormal gait, Denies limited range of motion, Denies muscle cramps, Denies muscle weakness, Denies numbness, Denies radiating pain into limb, Denies stiffness and Denies tingling Neuro Denies abnormal gait, Denies dizziness, Denies numbness and Denies tingling Endo Denies palpitations Physical Exam Vital Signs: Last Vital Signs Pulse 65 08/22/24 13:23 BP 124/72 08/22/24 13:23 BMI result Body Mass Index 27.1 Const General: cooperative, healthy appearing, comfortable and no acute distress Orientation/consciousness: patient oriented x3 Neck Neck: Yes normal visual inspection and Yes no JVD Resp Effort & Inspection: normal respiratory effort Auscultation: clear to auscultation bilaterally, no crackles, no rales, no rhonchi and no wheezes Cardio Jugular venous distension: no JVD Rate: regular rate Rhythm: regular rhythm Heart sounds: S1 normal heart sound present, S2 normal heart sound present, no murmurs and no rubs Neuro General: patient oriented x3 Extrem General: Yes normal to inspection and No no pedal edema Psych Appearance: grossly normal Mental Status: mental status grossly normal Speech and movement: Normal speech and movement present Assessment & Plan Assessment & Plan (1) Cardiomyopathy: Code(s): I42.9 - Cardiomyopathy, unspecified Category: Medical Plan: New finding of cardiomyopathy last spring. [facility] admission January 2024 for chest discomfort and abnormal EKG. EKG did show left bundle branch block of unknown chronicity. Echocardiogram done 01/23/2024 showed EF 35-40%, basal inferior wall motion abnormality and impaired relaxation. She did have cardiac catheteriz ation done 01/25/2024 showing normal coronary arteries. A Holter monitor done 02/02/2024 for 6 days shows sinus rhythm with average heart rate 81, rare SVE and VE She does recall having her symptom of palpitation and throat discomfort when wearing the Holter monitor. Her cardiomyopathy is nonischemic and may be related to left bundle branch block. She was been started on metoprolol XL and valsartan was changed to Entresto. Farxiga was added. Labs from 05/23/2024 showed potassium 4.1, creatinine 0.82. Echocardiogram done 05/06/2024 showing EF 40-45%, paradoxical septal motion consistent with left bundle branch block. On follow-up she continued to report a sensation of palpitation with discomfort echoes into her throat. A cardiac event monitor was done on 05/23/2024 showing sinus rhythm with average heart rate 78 beats per minute, rare PACs and PVCs, 27 triggered episodes correlating with sinus rhythm. Spent time reviewing all test findings with her. She is still concerned about her symptom of palpitation. No indication for medication changes at this time. She does not appear fluid overloaded. Offered reassurance that no significant arrhythmia has been identified and she has no significant coronary artery disease. She does have nonischemic cardiomyopathy. Will check a limited echo prior to her next visit to reassess EF. Continue metoprolol XL, Entresto, Farxiga for neurohormonal modulation. She is not requiring diuretics. Emergency care if ever needed for symptoms. She can further discuss her symptoms with her PCP and GI. She does report having a hiatal hernia. Cardiology follow-up in 6 months, sooner if needed. (2) Status post cardiac catheterization: Comment: 01/25/2024, normal coronary arteries Code(s): Z98.890 - Other specified postprocedural states Category: Surgical Plan: As above (3) Left bundle branch block (LBBB): Code(s): I44.7 - Left bundle-branch block, unspecified Category: Medical Plan: Finding on EKG, unclear chronicity (4) Essential hypertension: Code(s): I10 - Essential (primary) hypertension Category: Medical Plan: Normal range at this time. No med changes made. (5) Palpitation: Code(s): R00.2 - Palpitations Category: Medical Plan: As above - this could be related to isolated PACs and PVCs. Otherwise no significant findings identified. It could be esophageal as she does have a hiatal hernia. Plan Time spent on chart review, documentation, interview and assessment Orders: Orders CA Echo Limited 02/10/25 I42.9 - Cardiomyopathy, unspecified Coding Level of Care Code Est Pt Level 4 (54916) Complex EM visit Add On G2211 Diagnoses Cardiomyopathy I42.9 Status post cardiac catheterization Z98.890 Left bundle branch block (LBBB) I44.7 Essential hypertension I10 Palpitation R00.2 Time Spent (min) 36
[2024-08-22 13:23] VITALS: BP 124/72; PULSE 65; BMI 27.1
== END 2024-08-22 13:56 | disposition home or self-care (01) ==
LOC: HO.HCS 13:21
PROVIDERS: PCP Nurse Practitioner Family; Visit Provider Nurse Practitioner Family
DX: I42.9 Cardiomyopathy, unspecified (principal); Z98.890 Other specified postprocedural states; I44.7 Left bundle-branch block, unspecified; I10 Essential (primary) hypertension; R00.2 Palpitations
CPT/HCPCS: 99214; G2211

== ENCOUNTER → 2024-08-22 13:20 | Outpatient (BNVA) | payer OTHER, SELFPAY | PROVIDERS: PCP Nurse Practitioner Family; Visit Provider Nurse Practitioner Family | DX: I42.9 Cardiomyopathy, unspecified (principal); I44.7 Left bundle-branch block, unspecified; I10 Essential (primary) hypertension; R00.2 Palpitations; E78.5 Hyperlipidemia, unspecified; R73.01 Impaired fasting glucose; Z98.890 Other specified postprocedural states | CPT/HCPCS: 99212 ==

== ENCOUNTER → 2025-02-11 11:02 | Outpatient (REF) | payer OTHER, SELFPAY ==
--- NOTE | 2025-02-11 11:05 | CA_ITS ---
Transthoracic Echocardiogram Patient (Last, First, Middle): Stephanie Palafox, Gender: Female Date of : 1955 Age: 69 Procedure Date: 02/11/2025 Procedure Type: Transthoracic Echocardiogram Location: OP Height: 152.4 cm Weight: 67.13 kg BSA: 1.64 m2 Heart Rate: bpm BP: 110 / 64 mmHg Director Of Radio Services: TO Referring MD: Sonali Frederick WHIZZER HANDBhavna Symptoms: I42.9 - Cardiomyopathy, unspecified Study Quality: Adequate w contrast Conclusions: - LVEF difficult to assess because of left bundle-branch block. Suspect about 40%. Findings Procedure Information Contrast agent, definity, is being given per protocol without apparent complications. Left Ventricle Normal left ventricular cavity size. The left ventricular systolic function is mild to moderately decreased. There is paradoxical septal motion consistent with a left bundle branch block. There is mild septal asymmetric hypertrophy. LVEF difficult to assess because of left bundle-branch block. Suspect about 40%. Venous The inferior vena cava is normal in size and collapses greater than 50% with inspiration. Prior Study Comparison No significant change compared to prior study dated: 05/06/2024. Measurements 2D Linear Measurements IVSd: 1.13 0.6-0.9/0.6-1.0 cm LVIDd: 4.55 3.9-5.3/4.2-5.9 cm LVIDd Index: 2.77 2.4-3.2/2.2-3.1 cm/m2 LVIDs: 3.24 2.0-3.6 cm LVPWd: 0.84 0.7-1.1 cm LV Mass: 190.56 67-162/88-224 g LV Mass Index: 116.19 43-95/49-115 g/m2 LVOT Diam: 2.10 3.0+(-)1.3 cm 2D Systolic Function EF 4C: 41.60 >55% EF 2C: 46.90 >55% EF BiP: 44.80 >55% LVOT LVOT Pk Kirit: 0.78 LVOT Mn Kirit: 0.49 LVOT VTI: 0.13 LVOT Pk Grad: 2.00 LVOT Mn Grad: 1.00 LVOT Diam: 2.10 LVOT Area: 3.46 Tricuspid Valve RA Press: 3.00 Updated in Other Vendor System with Status of Final Aung Luis MD electronically signed on 02/11/2025 3:05:45 PM with status of Final
== END ==
LOC: HO.CARD 11:02
PROVIDERS: Visit Provider Nurse Practitioner Family
DX: I42.9 Cardiomyopathy, unspecified (principal)
CPT/HCPCS: 93308; Q9957

== ENCOUNTER → 2025-02-11 11:05 | Outpatient (BNV) | payer OTHER, SELFPAY | PROVIDERS: Visit Provider Internal Medicine | DX: I42.9 Cardiomyopathy, unspecified (principal) | CPT/HCPCS: 93308 ==

== ENCOUNTER 2025-02-24 13:19 | Outpatient (AMB) | payer OTHER, SELFPAY ==
[2025-02-24 13:23] VITALS: BP 132/62; PULSE 63; BMI 27.5
--- NOTE | 2025-02-24 13:23 | A.OFFVIS_ITS ---
Vital Signs 02/24/25 13:23 Height 5 ft Weight 140 lb 10.479 oz BMI 27.5 BP 132/62 Blood Pressure Location Lt brachial Position Sitting Pulse 63 Pulse Source Monitor Intake Visit Reasons: 6m follow up/Echo Mechanical Design Technician Required: No Wood Miller: Wood Miller Present Allergies No Known Allergies* Allergy (Uncoded 02/24/25 13:25) Agitated Medication List - Last Reconciled 02/24/25 by YASSINE Foster albuterol sulfate 90 mcg/actuation 2 puffs inhalation Q6H PRN ammonium lactate 12% 1 appl topical BID atorvastatin 10 mg DAILY budesonide-formoterol 160-4.5 mcg/actuation 2 puffs inhalation BID cyclosporine 0.05% (Restasis) 1 drp ophthalmic (eye) BID dapagliflozin propanediol 10 mg PO DAILY hydroxyzine HCl 25 mg PO DAILY melatonin 10 mg PO BEDTIME metformin 750 mg PO DAILY metoprolol succinate ER 25 mg PO DAILY multivitamin with folic acid 400 mcg (Daily-Romie (with folic acid)) 1 tab PO DAILY omeprazole 40 mg PO DAILY sacubitril-valsartan 24-26 mg (Entresto) 1 tab PO BID 90 days HPI HPI 6m follow up/Echo: Details: Stephanie is a 69-year-old female with past medical history of hypertension, hyperlipidemia, impaired fasting glucose who was admitted to [facility] in January 2024 for chest discomfort, abnormal EKG with left bundle branch block. Her troponin levels were normal. Her echocardiogram did show inferior wall motion abnormality and reduced EF. She did have symptoms concerning for unstable angina. She was transferred to [facility] for cardiac catheterization showing normal coronary arteries. Since then she has been reporting issues with palpitations and underwent a cardiac event monitor without concerning findings. Today she reports that she continues to have episodes of palpitation, tachycardia that creates a feeling up to her throat which can occur between 4-6 times a day. The episodes last 1-2 minutes, make her feel like she can't catch her breath and leave her feeling fatigued. This symptom is not getting worse with time. She has no lightheadedness, presyncope, syncope, falls. No chest discomfort. No significant shortness of breath otherwise, no PND, orthopnea or edema. Taking meds as directed. 2 family members present who are assisting with Burundian interpretation at their request. [facility] Medical History Essential hypertension GERD (gastroesophageal reflux disease) Impaired glucose tolerance Hyperlipidemia Surgical History H/O inguinal hernia repair H/O bladder repair surgery History of hand surgery H/O: hysterectomy Social History Household Members: Children Housing: House Do you presently have visiting nurse or other home services: No Patient Tobacco Use Status: Never used Tobacco service: No Review of Systems Const All systems reviewed & are unremarkable except as noted in HPI and below Card Denies chest pain, Denies chest pain at rest, Denies chest pain with activity, Denies syncope, Reports rapid heart rate, Denies pedal edema, Reports dyspnea, Denies dyspnea on exertion and Denies orthopnea Resp Reports dyspnea and Denies dyspnea on exertion Denies no additional complaints Musc Denies no additional complaints Neuro Denies syncope Physical Exam Vital Signs: Last Vital Signs Pulse 63 02/24/25 13:23 BP 132/62 02/24/25 13:23 BMI result Body Mass Index 27.5 Const General: cooperative, healthy appearing, comfortable and no acute distress Orientation/consciousness: patient oriented x3 Neck Neck: Yes normal visual inspection and Yes no JVD Resp Effort & Inspection: normal respiratory effort Auscultation: clear to auscultation bilaterally, no crackles, no rales, no rhonchi and no wheezes Cardio Jugular venous distension: no JVD Rate: regular rate Rhythm: regular rhythm Heart sounds: S1 normal heart sound present, S2 normal heart sound present, no murmurs and no rubs Neuro General: patient oriented x3 Extrem General: Yes normal to inspection and No no pedal edema Psych Appearance: grossly normal Mental Status: mental status grossly normal Speech and movement: Normal speech and movement present Office Procedures EKG Details: Today, read by me, normal sinus rhythm, left bundle branch block, rate 63, QTC 462 millisecond [id number], Complete Assessment & Plan Assessment & Plan (1) Cardiomyopathy: Code(s): I42.9 - Cardiomyopathy, unspecified Category: Medical Plan: New finding of cardiomyopathy last spring in the setting of LBBB. Echocardiogram done 01/23/2024 showed EF 35-40%, basal inferior wall motion abnormality and impaired relaxation. She did have cardiac catheterization done 01/25/2024 showing normal coronary arteries. Her cardiomyopathy is nonischemic and may be related to left bundle branch block. No sign of heart failure on examination. Echocardiogram 02/11/2025 shows EF 40%, no mention of wall motion abnormality. She is not requiring diuretics. She continues on metoprolol XL, Entresto and Farxiga for neurohormonal modulation. Will further titrate Entresto dose and recheck BMP in 1 week. Signs and symptoms of heart failure reviewed with her. Cardiology follow-up in 6 months, sooner if needed. (2) Status post cardiac catheterization: Comment: 01/25/2024, normal coronary arteries Code(s): Z98.890 - Other specified postprocedural states Category: Surgical Plan: As above (3) Left bundle branch block (LBBB): Code(s): I44.7 - Left bundle-branch block, unspecified Category: Medical Plan: Finding on EKG, persistent finding, unknown chronicity (4) Essential hypertension: Code(s): I10 - Essential (primary) hypertension Category: Medical Plan: Blood pressure goal less than 130/80. Normal at present. Titrating Entresto (5) Palpitation: Code(s): R00.2 - Palpitations Category: Medical Plan: Report of heart palpitation, in her throat, shortness of breath as described above. A Holter monitor done 02/02/2024 for 6 days shows sinus rhythm with average heart rate 81, rare SVE and VE She does recall having her symptom of palpitation and throat discomfort when wearing the Holter monitor. A cardiac event monitor was done on 05/23/2024 showing sinus rhythm with average heart rate 78 beats per minute, rare PACs and PVCs, 27 triggered episodes correlating with sinus rhythm. She continues to report this symptom. Reviewed test results with her again. EKG done today shows normal sinus rhythm with left bundle branch block, rate 63. Offered to complete a another Holter monitor and she declines. Since she has shortness of breath with her episodes I am unsure if this is pulmonary related. She has been seen by [facility] pulmonology and says she did have a pulmonary function test. Work on obtaining those notes for review. Her symptom was also thought to be possibly esophageal as she does have a hiatal hernia. No arrhythmias have been seen. Plan Time spent on chart review, documentation, interview and assessment Orders: Orders Basic Metabolic Panel Today I10 - Essential (primary) hypertension Medications: New sacubitril-valsartan 49-51 mg (Entresto) dose increased 1 tab PO BID 60 tabs 5RF Discontinued sacubitril-valsartan 24-26 mg (Entresto) Discontinued Reason: Doctor's Order 1 tab PO BID 90 days 180 tabs 1RF Coding Level of Care Code Est Pt Level 4 (77041) Complex EM visit Add On G2211 Diagnoses Cardiomyopathy I42.9 Status post cardiac catheterization Z98.890 Left bundle branch block (LBBB) I44.7 Essential hypertension I10 Palpitation R00.2 CPT Codes EKG - CPT: 01175-[id number], Complete ([id number]) Time Spent (min) 32
== END 2025-02-24 14:01 | disposition home or self-care (01) ==
LOC: HO.HCS 13:20
PROVIDERS: PCP Nurse Practitioner Family; Visit Provider Nurse Practitioner Family
DX: I42.9 Cardiomyopathy, unspecified (principal); Z98.890 Other specified postprocedural states; I44.7 Left bundle-branch block, unspecified; I10 Essential (primary) hypertension; R00.2 Palpitations
CPT/HCPCS: 93010; 99214; G2211

== ENCOUNTER → 2025-02-24 13:19 | Outpatient (BNVA) | payer OTHER, SELFPAY | PROVIDERS: PCP Nurse Practitioner Family; Visit Provider Nurse Practitioner Family | DX: I42.9 Cardiomyopathy, unspecified (principal); I44.7 Left bundle-branch block, unspecified; I10 Essential (primary) hypertension; R00.2 Palpitations; Z98.890 Other specified postprocedural states; R94.31 Abnormal electrocardiogram [ECG] [EKG] | CPT/HCPCS: 93005; 99212 ==

== ENCOUNTER 2025-08-14 14:11 | Outpatient (REF) | payer OTHER, SELFPAY | END 2025-08-14 14:12 | disposition home or self-care (01) | LOC: HO.LNP 14:11 | PROVIDERS: PCP Nurse Practitioner Family; Visit Provider Obstetrics & Gynecology | DX: Z01.419 Encounter for gynecological examination (general) (routine) without abnormal findings (principal); Z12.31 Encounter for screening mammogram for malignant neoplasm of breast; Z78.0 Asymptomatic menopausal state | CPT/HCPCS: 87626; 88175; 99397 ==

== ENCOUNTER 2025-08-14 14:11 | Outpatient (AMB) | payer OTHER, SELFPAY ==
--- NOTE | 2025-08-14 14:16 | A.OFFVIS_ITS ---
Vital Signs 08/14/25 14:19 Height 5 ft Weight 134 lb BMI 26.2 BP 124/76 Intake Visit Reasons: MANAGER POST Annual/ possible prolapse [employer] Truck Driver Required: Yes [employer] Truck Driver Language: Chief Inspector Services: [employer] Truck Driver Present (in person) [employer] Truck Driver Name: Michelle PARISH Information Interpreted: non-clinical & clinical Threshing Operator: Threshing Operator Present (Michelle PARISH) Accompanied by: Grand Child Allergies No Known Allergies* Allergy (Uncoded 08/14/25 14:21) Agitated Post menopausal: Yes HPI Comments Details: Presenting for annual exam. No complaints. Last Pap/HPV was many years ago, the patient is status post hysterectomy for endometrial cancer 3 5 years ago with a history of abnormal Pap smear no records available Last Mammogram was 2 years ago Last Colonoscopy was many years ago, the patient is scheduled in a month for GI consult for a screening colonoscopy Last DEXA scan was many years ago PFS Medical History Essential hypertension GERD (gastroesophageal reflux disease) Impaired glucose tolerance Hyperlipidemia Surgical History H/O inguinal hernia repair H/O bladder repair surgery History of hand surgery H/O: hysterectomy Family History Father HTN (hypertension) Stroke Mother HTN (hypertension) Maternal Grandfather Diabetes Maternal Grandmother Diabetes Paternal Grandfather Diabetes Colon cancer Paternal Grandmother Diabetes Stroke Maternal Aunt Uterus cancer Social History Household Members: Family and Children Housing: House Do you presently have visiting nurse or other home services: No Alcohol intake: current Alcohol intake frequency: holidays/special occasions only Patient Tobacco Use Status: Never used Tobacco service: No Current occupational status: retired Sexual orientation: Straight/Heterosexual Gender identity: Female Female Reproductive History Menstrual Menopause type: surgical Total pregnancies: 4 Full term: 3 Number of Living Children: 3 Ectopics: 1 Review of Systems Const All systems reviewed & are unremarkable except as noted in HPI and below Card Reports as per HPI and Reports no additional complaints Resp Reports as per HPI and Reports no additional complaints GI Reports as per HPI and Reports no additional complaints Reports as per HPI Physical Exam Vital Signs: Last Vital Signs BP 124/76 08/14/25 14:19 BMI result Body Mass Index 26.2 Const General: cooperative, healthy appearing and comfortable General: Yes bladder normal to palpation External Female Exam: No lesion Speculum Exam - Vagina: normal appearance of the vagina, normal vaginal discharge and not erythematous Speculum Exam - Cervix: Cervix absent Bimanual exam- vagina & uterus: bladder normal to palpation and uterus absent Bimanual Exam- Adnexa, other: Other (No masses detected) Assessment & Plan Assessment & Plan (1) Well woman exam: Code(s): Z01.419 - Encounter for gynecological examination (general) (routine) without abnormal findings Category: Medical Plan: Co testing of the vagina done Counseled the patient about the recommended dietary allowance of 1200 mg of C alcium & 800 IU of vitamin D. Mammogram ordered. Will order DEXA scan . The patient was instructed to perform monthly self-breast exams and to schedule a 2 week DEXA scan follow-up appointment and an annual exam in a year; All questions answered and the patient verbalized understanding. Orders: Orders MM tomosynthesis screening BI Today Z12.31 - Encounter for screening mammogram for malignant neoplasm of breast XR DEXA axial skeleton Today Z78.0 - Asymptomatic menopausal state Coding Level of Care Code Est Pt Prev Care >65y(90405) Diagnoses Well woman exam Z01.419
[2025-08-14 14:19] VITALS: BP 124/76; BMI 26.2
== END 2025-08-14 15:11 | disposition home or self-care (01) ==
LOC: HO.HWS 14:11
PROVIDERS: PCP Nurse Practitioner Family; Visit Provider Obstetrics & Gynecology
DX: Z01.419 Encounter for gynecological examination (general) (routine) without abnormal findings (principal)
CPT/HCPCS: 99397; 99459

== ENCOUNTER 2025-09-02 13:41 | Outpatient (AMB) | payer OTHER, SELFPAY ==
[2025-09-02 13:45] VITALS: BP 134/82; PULSE 72; BMI 26.7
--- NOTE | 2025-09-02 13:45 | A.OFFVIS_ITS ---
Vital Signs 09/02/25 13:45 Height 5 ft Weight 136 lb 10.986 oz BMI 26.7 BP 134/82 Blood Pressure Location Lt brachial Position Sitting Pulse 72 Intake Visit Reasons: 6m follow up Intake Note: 6 month follow-up feeling good Project Manager Interior Design Required: Yes Project Manager Interior Design Services: Project Manager Interior [employer] Present Project Manager Interior Design Name: juancarlos Perez Bulk Truck Driver: Bulk Truck Driver Present Accompanied by: Daughter Allergies No Known Allergies* Allergy (Uncoded 08/14/25 14:21) Agitated Medication List - Last Reconciled 09/02/25 by Jeffery Foster MD albuterol sulfate 90 mcg/actuation 2 puffs inhalation Q6H PRN atorvastatin 10 mg DAILY budesonide-formoterol 160-4.5 mcg/actuation 2 puffs inhalation BID cyclosporine 0.05% (Restasis) 1 drp ophthalmic (eye) BID dapagliflozin propanediol 10 mg PO DAILY hydroxyzine HCl 25 mg PO DAILY melatonin 10 mg PO BEDTIME metformin 750 mg PO DAILY metoprolol succinate ER 25 mg PO DAILY multivitamin with folic acid 400 mcg (Daily-Romie (with folic acid)) 1 tab PO DAILY omeprazole 40 mg PO DAILY sacubitril-valsartan 49-51 mg (Entresto) 1 tab PO BID HPI Comments Details: Stephanie comes for follow-up accompanied by her daughter. History was obtained with help of a health promotion educator over the telephone. Patient says she has been feeling the same as she felt 6 months ago. No new symptoms although she said with exertional she does get short of breath as well as rapid heart rate. She says this usually happens when she climbs a flight of stairs. She had also when she is resting gets across the chest discomfort which she describes a pressure. As recall she had a cardiac catheterization for workup for cardiomyopathy which had shown normal coronary arteries. She is bothered by this palpitation although she says she does not have any change in his symptoms. Denies any clear orthopnea, PND, leg edema. Takes all her medications. [facility] Medical History Essential hypertension GERD (gastroesophageal reflux disease) Impaired glucose tolerance Hyperlipidemia Surgical History H/O inguinal hernia repair H/O bladder repair surgery History of hand surgery H/O: hysterectomy Family History Father HTN (hypertension) Stroke Mother HTN (hypertension) Maternal Grandfather Diabetes Maternal Grandmother Diabetes Paternal Grandfather Diabetes Colon cancer Paternal Grandmother Diabetes Stroke Maternal Aunt Uterus cancer Social History Household Members: Family and Children Housing: House Do you presently have visiting nurse or other home services: No Alcohol intake: current Alcohol intake frequency: holidays/special occasions only Patient Tobacco Use Status: Never used Tobacco service: No Current occupational status: retired Sexual orientation: Straight/Heterosexual Gender identity: Female Review of Systems Const Denies chills, Denies fatigue, Denies fever(s), Denies frequent falls, Denies weakness, Denies weight gain and Denies weight loss ENT Denies dizziness Card Denies chest pain, Denies leg edema, Denies lightheadedness, Denies palpitations, Denies dyspnea, Denies dyspnea on exertion, Denies orthopnea and Denies other (loss of consciousness) Resp Denies cough, Denies dyspnea and Denies dyspnea on exertion GI Denies hematochezia and Denies change in stool character Musc Denies abnormal gait, Denies muscle weakness, Denies numbness, Denies radiating pain into limb and Denies tingling Neuro Denies abnormal gait, Denies dizziness, Denies frequent falls, Denies numbness, Denies tingling and Denies weakness Endo Denies fatigue and Denies palpitations Physical Exam Vital Signs: Last Vital Signs Pulse 72 09/02/25 13:45 BP 134/82 09/02/25 13:45 BMI result Body Mass Index 26.7 Const General: cooperative, healthy appearing, comfortable, no acute distress and anxious Orientation/consciousness: patient oriented x3 Neck Neck: Yes normal visual inspection and Yes no JVD Resp Effort & Inspection: normal respiratory effort Auscultation: clear to auscultation bilaterally, no crackles, no rales, no rhonchi and no wheezes Cardio Jugular venous distension: no JVD Rate: regular rate Rhythm: regular rhythm Heart sounds: S1 normal heart sound present, S2 normal heart sound present, no murmurs and no rubs Neuro General: patient oriented x3 Extrem General: Yes normal to inspection and No no pedal edema Psych Appearance: grossly normal Mental Status: mental status grossly normal Speech and movement: Normal speech and movement present Assessment & Plan Assessment & Plan (1) Cardiomyopathy: Code(s): I42.9 - Cardiomyopathy, unspecified Category: Medical Plan: Cardiomyopathy process with [id number] LV systolic dysfunction with LVEF of 40%, suspected left bundle-branch block related. She has normal coronary arteries consistent with nonischemic cardiomyopathy. She has no signs or symptoms of heart failure but has NYHA class 2 symptoms. Will further increase her metoprolol to 50 mg daily and Entresto to 97-103 mg b.i.d. for neurohormonal modulation. Continue Farxiga therapy. Signs and symptoms of heart failure were discussed. Follow-up office visit with nurse in 1 week with blood work to assess tolerance of increased therapy. Follow-up echocardiogram in 6 months time (2) Palpitation: Code(s): R00.2 - Palpitations Category: Medical Plan: Symptoms of palpitation which are most suggestive of anxiety. Also could be related to inappropriate sinus tachycardia. Will suggest a Holter monitor to assess for the same. Will suggest to increase metoprolol as above. Stress mitigation strategies were discussed. Further treatment based on the findings of the Holter monitor. Follow up in the clinic in 6 months time, sooner PRN. Thank you for allowing me to partake in her care Orders: Orders NT Pro B Type Natriuretic Pept 1 Week I42.9 - Cardiomyopathy, unspecified ECG 7 day holter monitor Today I42.9 - Cardiomyopathy, unspecified, R00.2 - Palpitations CA echo transthoracic complete 6 Months I42.9 - Cardiomyopathy, unspecified Basic Metabolic Panel 1 Week I42.9 - Cardiomyopathy, unspecified Medications: New metoprolol succinate ER (Toprol XL) 50 mg PO DAILY 30 tabs 5RF sacubitril-valsartan 97-103 mg (Entresto) 1 tab PO BID 60 tabs 5RF Discontinued sacubitril-valsartan 49-51 mg (Entresto) Discontinued Reason: Doctor's Order 1 tab PO BID 180 tabs 3RF Coding Level of Care Code Est Pt Level 4 (91322) Complex EM visit Add On G2211 Diagnoses Cardiomyopathy I42.9 Palpitation R00.2
== END 2025-09-02 14:09 | disposition home or self-care (01) ==
LOC: HO.HCS 13:41
PROVIDERS: PCP Nurse Practitioner Family; Visit Provider Internal Medicine Cardiovascular Disease
DX: I42.9 Cardiomyopathy, unspecified (principal); R00.2 Palpitations
CPT/HCPCS: 99214; G2211

== ENCOUNTER → 2025-09-02 13:41 | Outpatient (BNVA) | payer OTHER, SELFPAY | PROVIDERS: PCP Nurse Practitioner Family; Visit Provider Internal Medicine Cardiovascular Disease | DX: R00.2 Palpitations (principal); I42.9 Cardiomyopathy, unspecified | CPT/HCPCS: 99212 ==

== ENCOUNTER 2025-09-09 15:52 | Outpatient (REF) | payer OTHER, SELFPAY ==
[2025-09-09 16:44] LABS: Anion Gap 12 (12-20); Blood Urea Nitrogen 15 mg/dL (9-16); Calcium 9.4 mg/dL (8.4-10.2); Carbon Dioxide 25 mmol/L (22-29); Chloride 109 mmol/L (96-108); Estimated Glomerular Filt Rate > 60; Potassium 4.4 mmol/L (3.3-5.1); Sodium 142 mmol/L (135-145)
[2025-09-09 16:50] LABS: NT Pro B Type Natriuretic Pept 196.2 pg/mL (<300)
== END 2025-09-09 15:53 | disposition home or self-care (01) ==
LOC: HO.LAB 15:52
PROVIDERS: PCP Nurse Practitioner Family; Visit Provider Internal Medicine Cardiovascular Disease
DX: I42.9 Cardiomyopathy, unspecified (principal)
CPT/HCPCS: 36415; 80048; 83880